=== PATIENT | female | born 2000 | race Two or more races ===

== ENCOUNTER → 2024-08-10 | Outpatient (BNVA) | payer MEDICAID, SELFPAY | END | disposition home or self-care (01) | PROVIDERS: PCP Nurse Practitioner Family; Referring Provider Nurse Practitioner Family; Visit Provider Nurse Practitioner Family | DX: L70.0 Acne vulgaris (principal); Z30.011 Encounter for initial prescription of contraceptive pills; F32.1 Major depressive disorder, single episode, moderate | CPT/HCPCS: 81025; 99214 ==

== ENCOUNTER → 2024-09-24 | Outpatient (BNVA) | payer MEDICAID, SELFPAY | END | disposition home or self-care (01) | PROVIDERS: PCP Nurse Practitioner Primary Care; Referring Provider Nurse Practitioner Primary Care; Visit Provider Nurse Practitioner Primary Care | DX: Z00.01 Encounter for general adult medical examination with abnormal findings (principal); Z01.83 Encounter for blood typing; Z11.3 Encounter for screening for infections with a predominantly sexual mode of transmission; Z32.02 Encounter for pregnancy test, result negative; E66.812 Obesity, class 2; Z68.36 Body mass index [BMI] 36.0-36.9, adult; Z13.1 Encounter for screening for diabetes mellitus; F41.9 Anxiety disorder, unspecified; Z71.85 Encounter for immunization safety counseling | CPT/HCPCS: 81025; 99395; G0439 ==

== ENCOUNTER → 2024-10-04 | Outpatient (BNVA) | payer MEDICAID, SELFPAY | END | disposition home or self-care (01) | PROVIDERS: PCP Nurse Practitioner Family; Referring Provider Nurse Practitioner Family; Visit Provider Nurse Practitioner Family | DX: F32.A Depression, unspecified (principal); F41.9 Anxiety disorder, unspecified | CPT/HCPCS: 99212; G0463 ==

== ENCOUNTER → 2024-10-11 | Outpatient (BNVA) | payer MEDICAID, SELFPAY | END | disposition home or self-care (01) | PROVIDERS: PCP Nurse Practitioner Primary Care; Referring Provider Nurse Practitioner Primary Care; Visit Provider Nurse Practitioner Primary Care | DX: Z32.01 Encounter for pregnancy test, result positive (principal); N91.2 Amenorrhea, unspecified | CPT/HCPCS: 99214 ==

== ENCOUNTER → 2024-10-12 | Outpatient (BNVA) | payer MEDICAID, SELFPAY | END | disposition home or self-care (01) | PROVIDERS: PCP Nurse Practitioner Primary Care; Referring Provider Nurse Practitioner Primary Care; Visit Provider Nurse Practitioner Primary Care | DX: Z32.01 Encounter for pregnancy test, result positive (principal) ==

== ENCOUNTER 2024-10-25 09:58 | Outpatient (AMB) | payer MEDICAID, SELFPAY ==
--- NOTE | 2024-10-25 10:34 | OBCLNT_ITS ---
Vital Signs 10/25/24 10:35 Height 1.63 m Height Method Stated Weight 95.028 kg Weight Measurement Method Standing Scale BMI 35.9 BP 148/93 H Blood Pressure Source Automatic Cuff Blood Pressure Location Right Upper Arm Position Sitting Respiration 16 Pulse 88 Pulse Source Monitor Temp 98.4 F Temp Source Oral Pulse Oximetry (%) 98 Oxygen Delivery Method Room Air Allergies/Home Meds Allergies & Medications Allergies No Known Allergies Allergy (Verified 10/25/24 10:36) Medication Reconciliation vitamin #56-iron 35 mg and 5 mg-folic acid 1 mg-dha capsule 1 cap PO QDAY #30 caps 10/11/24 [Rx Confirmed 10/25/24] Intake Visit Data Collection New Patient or Established: Established Patient (seen at [facility] within 3 years) Reason for Visit:: INITIAL CARE Seen by Clinical Staff ONLY (RN/MA): No Conditioner Tumbler Required: No Do You Feel Safe at Home: Yes Authorities Contacted: N/A PCP or OBGYN visit in last 3 months: Yes Hx Now: Yes Are you currently on any form of Control: No Last menstrual period: 08/31/24 Pain Present Currently: No Pain Scale Used: Chirinos-Avalos/Numerical Pain scale:: 0 Smoking Status Smoking Status: Never smoker Questionnaires Covid-19 Vaccine Questionnaire Has patient been vacinated for Covid-19 Have you been vacinated for Covid-19: Yes PHQ-9 PHQ-2 Over the last 2 weeks, how often have you been bothered by any of the following problems? 1. Little interest or pleasure in doing things: not at all 2. Feeling down, depressed, or hopeless: not at all Total score: 0 PHQ-9 3. Trouble falling or staying asleep, or sleeping too much: Not at all 4. Feeling tired or having little energy: Not at all 5. Poor appetite or overeating: Not at all 6. Feeling bad about yourself - or that you are a failure or have let yourself or your family down: Not at all 7. Trouble concentrating on things, such as reading the newspaper or watching television: Not at all 8. Moving or speaking so slowly that other people could have noticed? - Or the opposite - being so fidgety or restless that you have been moving around a lot more than usual: not at all 9. Thoughts that you would be better off or of hurting yourself in some way: Not at all Total score: 0 Source: Developed by Drs. Ramone Arguello, Rahel Terrazas, Jamil Ellis and colleagues, with an educational josé miguel from [employer]. Depression screen completed yes Social History Living Situation History Lives With: Family Housing: House Tobacco History Smoking Status: Never smoker Second Hand Smoke Exposure: No Alcohol History Alcohol Intake: Current Alcohol Intake Frequency: holidays/special occasions only Substance Use History Substance Use: HX: THC Domestic Abuse History Do You Feel Safe at Home: Yes History of Present Illness HPI Narrative Rain Chu, , presents for initial intake. LMP: August 31, 2024. LONNIE based on LMP: June 07, 2025. Currently estimated at 5-6 weeks gestation. OB History: - Prior pregnancies: , 34-week vaginal delivery in 2023, 5 lb 5 oz female infant - Prior C-sections, miscarriages, ectopics, or terminations: No Medical History: - Chronic conditions (e.g., DM, HTN, thyroid disease): Anxiety, depression - Surgical history: None mentioned - Medications: None mentioned - Allergies: None mentioned - Psychosocial: Tobacco No, Alcohol No, Illicit drugs No - IPV screening: No, Depression screening: No Family History: - Genetic or congenital disorders: None mentioned - Chronic diseases in family: None mentioned OB Ultrasound OB Ultrasound Ultrasound technique: transabdominal Gestational sac assessment: Presence, location, size, shape: - Transvaginal ultrasound: - Gestational sac present - No pole or heartbeat visualized - Gestational sac size corresponds to approximately 5-6 weeks gestation 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 History of vaginal delivery at 34w in 2023. No chronic medical or surgical history. No tobacco, alcohol, or drug use. Uterus visualized on US with intrauterine gestational sac; no pole or cardiac activity seen, consistent with early IUP. Plan: Repeat TVUS in 10 days for viability/lilliam ing hCG drawn today Start vitamins Rx for nausea sent Routine labs pending Declined genetic screening for now Routine follow-up Menstrual History Menstrual reliability: definite Flow: normal Menstrual regularity: regular Monthly: Yes Age at menarche: 11 On control pills at conception: No Date of positive home test: 10/06/24 Associated symptoms (LMP): Reports fatigue, breast tenderness and bloating OB History : 4 Para: 1 Hx # Pregnancies: 1 Hx Total # of Abortions (Spontaneous & Elective): 2 # of Living Children: 1 Delivery History 1st : Child's name: SUNSHINE date: 09/17/23 sex: female Gestational age at delivery (weeks): 32 Delivery type: vaginal Delivery complications: NONE History of depression before or after : Yes Infection History & Risk Evaluation History of STDs: none Genetic Screening & History Genetic Screening/Teratology Counseling - Includes patient, baby's father, or anyone in either family with: 1. Patient's age 35 years or older as of estimated date of delivery: No 2. Thalassemia (Malawian, Croatian, Mediterranean, or Background); MCV less than 80: No 3. Neural Tube Defect (Meningomyelocele, Spina Bifida, or Anencephaly): No 4. Congenital Heart Defect: No 5. Down Syndrome: No 6. Kuldeep-Sachs (Ashkenazi Scientologist, Cajun, Cuban Moca): No 7. Salty Disease (Ashkenazi Scientologist): No 8. Familial Dysautonomia (Ashkenazi Scientologist): No 9. Sickle Cell Disease or Trait (): No 10. Hemophilia or other blood disorders: No 11. Muscular Dystrophy: No 12. Cystic Fibrosis: No 13. Clovis's Chorea: No 14. Mental Retardation/Autism: No 15. Other inherited genetic or chromosomal disorder: No 16. Maternal Metabolic Disorder (EG,TYPE 1 Diabetes, PKU): No 17. Patient or baby's father had a child with defects not listed above: No 18. Recurrent loss or a stillbirth: No 19. Medications (including supplements, vitamins, herbs or otc drugs)/illicit/recreational drugs/alcohol since last menstrual period: No 20. Any other: No Infection History 1. Live with someone with TB or exposed to TB: No 2. Rash or viral illness since last menstrual period: No 3. Hepatitis B,C: No Other (see comments) Source: [employer] Review of Systems Constitutional Constitutional: Reports fatigue Gastrointestinal Gastrointestinal: Reports bloating Endocrine Endocrine: Reports fatigue Exam General Limitations: no limitations General Appearance: alert, in no apparent distress and comfortable Head Head exam: atraumatic and normocephalic Eye Eye exam: Present normal appearance, PERRL and EOMI Neck Neck exam: Present normal inspection and full ROM Chest Chest inspection: Present normal inspection and symmetric chest wall rise; Absent tenderness Resp Respiratory exam: Present normal lung sounds bilaterally; Absent respiratory distress Card Cardiovascular exam: Present regular rate and normal rhythm Abdominal Abdominal exam: Present soft and normal bowel sounds; Absent tenderness, guarding, rebound or rigidity Neuro Neurological exam: Present alert and oriented X3 Psych Psychiatric exam: Present normal affect Office Procedures OB Clinic LOC & Office Proc's Nursing/Assessment Patient Status: Established Patient OB Clinic Nursing Assessment: Medication Reconciliation, Update PMH in EMR and Vital Signs OB Clinic Coordination of Care: Complex Care and Chronic Disease 1-5, Con sent,records obtained, informed consent, Education Simp Pt/Fam, Lab and Imaging orders, Results/Orders obtained and Staff clarify orders Special Needs: Heart tones Established Patient Charge Established Patient Point Assignment: 135 Established Patient Point Charge: EP Level 4 (120-155) Bedside Ultrasounds US Transvaginal at bedside: Yes Assessment & Plan Diagnosis / Problem List (1) of unknown anatomic location: Status: Acute (2) Supervision of high risk , unspecified, first trimester: Status: Acute Plan Labs Ordered Today: - hCG Plan: - Routine care initiated - vitamins continued - Ultrasound performed today, repeat in 10 days to confirm dating - Genetic screening options reviewed and patient declines for now - Referral to MFM or nutrition if indicated - Prescription for nausea medication sent Educated the patient on the importance of care, including taking vitamins with folic acid, iron, and calcium. Emphasized avoiding alcohol, smoking, and certain medications. Discussed common symptoms like nausea and fatigue, advising small, frequent meals and adequate hydration. Explained the need for regular check-ups and recommended safe physical activities. Instructed on signs of complications, such as severe cramping or bleeding, and when to seek immediate medical attention. Highlighted the importance of a balanced diet and avoiding high-risk foods. Encouraged open communication about any concerns or questions. Encouraged keeping up with all appointments and tests.
[2024-10-25 10:35] VITALS: BP 148/93; PULSE 88; RESP 16; TEMP 36.9; O2SAT 98; BMI 35.9
== END 2024-10-25 11:00 | disposition home or self-care (01) ==
LOC: HODSOBC 09:58
PROVIDERS: PCP Nurse Practitioner Primary Care; Referring Provider Nurse Practitioner Primary Care; Supervising Provider Obstetrics & Gynecology; Visit Provider Obstetrics & Gynecology
DX: O09.211 Supervision of pregnancy with history of pre-term labor, first trimester (principal); Z3A.01 Less than 8 weeks gestation of pregnancy; O36.80X0 Pregnancy with inconclusive fetal viability, not applicable or unspecified
CPT/HCPCS: 76817; 99214; G0463

== ENCOUNTER 2024-11-04 09:12 | Outpatient (AMB) | payer MEDICAID, SELFPAY ==
[2024-11-04 09:24] VITALS: BP 126/94; PULSE 101; RESP 20; TEMP 36.6; O2SAT 98; BMI 35.6
--- NOTE | 2024-11-04 09:24 | OBCLNT_ITS ---
Vital Signs 11/04/24 09:24 Height 1.63 m Height Method Stated Weight 94.574 kg Weight Measurement Method Standing Scale BMI 35.6 BP 126/94 H Blood Pressure Source Automatic Cuff Blood Pressure Location Right Upper Arm Position Sitting Respiration 20 Pulse 101 H Pulse Source Monitor Temp 98 F Temp Source Oral Pulse Oximetry (%) 98 Oxygen Delivery Method Room Air Allergies/Home Meds Allergies & Medications Allergies No Known Allergies Allergy (Verified 11/04/24 09:25) Medication Reconciliation doxylamine 10 mg-pyridoxine (vit B6) 10 mg tablet,delayed release (Diclegis) 1 tab PO QDAY 30 days #30 tabs 11/04/24 [Rx] ondansetron 4 mg disintegrating tablet 4 mg PO Q6H PRN nausea and vomiting 30 days #120 tabs 11/04/24 [Rx] vitamin with calcium no.72-iron 27 mg-folic acid 1 mg tablet ( Vitamins Plus Low Iron) 1 tab PO QDAY 90 days #90 tabs 11/04/24 [Rx] Intake Visit Data Collection New Patient or Established: Established Patient (seen at [facility] within 3 years) Reason for Visit:: CARE Seen by Clinical Staff ONLY (RN/MA): No Veterinary Radiologist Required: No Do You Feel Safe at Home: Yes Authorities Contacted: N/A PCP or OBGYN visit in last 3 months: Yes Hx Now: Yes Are you currently on any form of Control: No Pain Present Currently: No Pain Scale Used: Chirinos-Avalos/Numerical Pain scale:: 0 Smoking Status Smoking Status: Never smoker Questionnaires Covid-19 Vaccine Questionnaire Has patient been vacinated for Covid-19 Have you been vacinated for Covid-19: Yes PHQ-9 PHQ-2 Over the last 2 weeks, how often have you been bothered by any of the following problems? 1. Little interest or pleasure in doing things: not at all 2. Feeling down, depressed, or hopeless: not at all Total score: 0 PHQ-9 3. Trouble falling or staying asleep, or sleeping too much: Not at all 4. Feeling tired or having little energy: Not at all 5. Poor appetite or overeating: Not at all 6. Feeling bad about yourself - or that you are a failure or have let yourself or your family down: Not at all 7. Trouble concentrating on things, such as reading the newspaper or watching television: Not at all 8. Moving or speaking so slowly that other people could have noticed? - Or the opposite - being so fidgety or restless that you have been moving around a lot more than usual: not at all 9. Thoughts that you would be better off or of hurting yourself in some way: Not at all Total score: 0 Source: Developed by Drs. Ramone Arguello, Rahel Terrazas, Jamil Ellis and colleagues, with an educational josé miguel from [employer]. 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 Patient reports nausea. Denies CARTWRIGHT, VC, and epigastric pain. heart tones: 158 bpm. Laboratory, Imaging, and Diagnostic Test Results - Date: 10/25/2024 - HC,327 - Ultrasound (11/04/2024): - heartbeat visualized: 158 bpm (normal) - Gestational age: 7 weeks and 3 days Care OB Visit Log OB Flowsheet Initial Weight: Not Recorded Date -?-?-?-?-?-?-?-?-?-?-?-?- EGA Weight BP Alb Glu CTX Pres Fundal ht FHR Mov Dilation Station Effacement Hx Notes Visit Note 10/25/24 -?-?-?-?-?-?-?-?-?-?-?-?- 7w 6d 95.028 kg 148/93 at ~5?6w by LMP 08/31/24, presents for initial intake. History of vaginal delivery at 34w in 2023. No chronic medical or surgical history. No tobacco, alcohol, or drug use. Uterus visualized on US with intrauterine gestational sac; no pole or cardiac activity seen, consistent with early IUP. Plan: Repeat TVUS in 10 days for viability/lilliam ing hCG drawn today Start vitamins Rx for nausea sent Routine labs pending Declined genetic screening for now Routine follow-up 11/04/24 -?-?-?-?-?-?-?-?-?-?-?-?- 9w 2d 94.574 kg 126/94 at 7 weeks and 3 days gestation presents for routine care. Patient reports nausea. Denies headache, vision changes, right upper quadrant or epigastric pain. Transvaginal ultrasound on 11/04/2024 confirmed intrauterine with heartbeat of 158 bpm, consistent with gestational age. hCG level on 10/25/2024 was 16,327. No additional concerns reported. Plan: Problem list: at 7w3d, nausea. Discussed ultrasound findings confirming intrauterine with appropriate dating and normal FHR. Routine labs ordered today. Counseled on genetic carrier screening options and reviewed timing for NIPT and NT scan. Advised continuation of vitamins, lifestyle modifications for early , and avoidance of teratogens. Educated on normal first-trimester symptoms and provided guidance on warning signs. Scheduled follow-up visit in 4 weeks. LONNIE Calculator Estimated Delivery Date Method Current WG Current Estimate 06/07/25 LMP (Uncertain) 9w 2d Office Procedures OB Clinic LOC & Office Proc's Nursing/Assessment Patient Status: Established Patient OB Clinic Nursing Assessment: Medication Reconciliation, Update PMH in EMR and Vital Signs OB Clinic Coordination of Care: Complex Care and Chronic Disease 1-5, Consent,records obtained, informed consent, Education Simp Pt/Fam, Lab and Imaging orders, Results/Orders obtained and Staff clarify orders Special Needs: Heart tones Established Patient Charge Established Patient Point Assignment: 135 Established Patient Point Charge: EP Level 4 (120-155) Assessment & Plan Diagnosis / Problem List (1) Supervision of high risk , unspecified, first trimester: Status: Acute (2) Hyperemesis gravidarum: Status: Acute Plan Confirmation and Dating Discussed confirmation of intrauterine via ultrasound, heart rate (FHR) observed [158 bpm], and estimated due date (LONNIE) established based on ultrasound dating [7 weeks and 3 days] per ACOG guidelines. Care and Follow-Up Reviewed importance of regular visits, with next appointment scheduled in 4 weeks (or sooner if high risk). Provided anticipatory guidance on expected first-trimester symptoms (e.g., nausea, fatigue) and self-care strategies. Screening and Testing Counseled on routine labs ordered today per standard guidelines. Discussed optional genetic carrier screening and offered based on risk factors or patient preference. Explained noninvasive testing (NIPT) for aneuploidy screening available after 9 weeks, including benefits, limitations, and follow-up diagnostic testing if indicated. Informed patient of planned nuchal translucency (NT) ultrasound at 12?14 weeks and detailed anatomy ultrasound at 18?22 weeks with M referral. Lifestyle and Risk Reduction Advised on vitamins (400-800 mcg folic acid daily) to reduce neural tube defect risk. Counseled on smoking cessation, alcohol avoidance, and limiting caffeine (<200 mg/day). Discussed safe exercise (30 minutes most days) and weight gain goals per BMI (per IOM guidelines). Reviewed dietary recommendations, including avoidance of high-risk foods (e.g., unpasteurized dairy, raw fish, deli meats). Assessed social risks (e.g., substance use, domestic violence) and provided resources if applicable. Warning Signs and Emergency Guidance Educated patient on concerning symptoms requiring immediate evaluation (e.g., vaginal bleeding, severe abdominal pain, persistent vomiting). Provided contact information for urgent concerns and after-hours care. Psychosocial Support Assessed emotional well-being and discussed common first-trimester emotional changes. Offered resources for mental health support or community services if needed.
== END 2024-11-04 10:11 | disposition home or self-care (01) ==
LOC: HODSOBC 09:12
PROVIDERS: PCP Obstetrics & Gynecology; Referring Provider Obstetrics & Gynecology; Supervising Provider Obstetrics & Gynecology; Visit Provider Obstetrics & Gynecology
DX: O09.891 Supervision of other high risk pregnancies, first trimester (principal); Z3A.09 9 weeks gestation of pregnancy; O21.0 Mild hyperemesis gravidarum
CPT/HCPCS: 99214; G0463

== ENCOUNTER 2024-12-01 08:31 | Outpatient (AMB) | payer MEDICAID, SELFPAY ==
[2024-12-01 08:41] VITALS: BP 132/81; PULSE 68; RESP 17; TEMP 36.8; O2SAT 99; BMI 34.5
--- NOTE | 2024-12-01 08:41 | OBCLNT_ITS ---
Vital Signs 12/01/24 08:41 Height 1.63 m Height Method Stated Weight 91.852 kg Weight Measurement Method Standing Scale BMI 34.5 BP 132/81 H Blood Pressure Source Automatic Cuff Blood Pressure Location Right Upper Arm Position Sitting Respiration 17 Pulse 68 Pulse Source Monitor Temp 98.3 F Temp Source Temporal Artery Scan Pulse Oximetry (%) 99 Oxygen Delivery Method Room Air Allergies/Home Meds Allergies & Medications Allergies No Known Allergies Allergy (Verified 12/01/24 08:42) Medication Reconciliation doxylamine 10 mg-pyridoxine (vit B6) 10 mg tablet,delayed release (Diclegis) 1 tab PO QDAY 30 days #30 tabs 11/04/24 [Rx Confirmed 12/01/24] vitamin with calcium no.72-iron 27 mg-folic acid 1 mg tablet ( Vitamins Plus Low Iron) 1 tab PO QDAY 90 days #90 tabs 11/04/24 [Rx Confirmed 12/01/24] Intake Visit Data Collection New Patient or Established: Established Patient (seen at [facility] within 3 years) Reason for Visit:: OBC Seen by Clinical Staff ONLY (RN/MA): No Service Center Manager Required: No Do You Feel Safe at Home: Yes Authorities Contacted: N/A PCP or OBGYN visit in last 3 months: Yes Date of Last PCP or OBGYN visit: 11/04/24 Hx Now: Yes Are you currently on any form of Control: No Pain Present Currently: No Pain Scale Used: Chirinos-Avalos/Numerical Pain scale:: 0 Smoking Status Smoking Status: Never smoker Questionnaires Covid-19 Vaccine Questionnaire Has patient been vacinated for Covid-19 Have you been vacinated for Covid-19: No PHQ-9 PHQ-2 Over the last 2 weeks, how often have you been bothered by any of the following problems? 1. Little interest or pleasure in doing things: not at all 2. Feeling down, depressed, or hopeless: not at all Total score: 0 PHQ-9 3. Trouble falling or staying asleep, or sleeping too much: Not at all 4. Feeling tired or having little energy: Not at all 5. Poor appetite or overeating: Not at all 6. Feeling bad about yourself - or that you are a failure or have let yourself or your family down: Not at all 7. Trouble concentrating on things, such as reading the newspaper or watching television: Not at all 8. Moving or speaking so slowly that other people could have noticed? - Or the opposite - being so fidgety or restless that you have been moving around a lot more than usual: not at all 9. Thoughts that you would be better off or of hurting yourself in some way: Not at all Total score: 0 If you checked off any problems, how difficult have these problems made it for you to do your work, take care of things at home, or get along with other people?: not difficult at all Source: Developed by Drs. Ramone Arguello, Rahel Terrazas, Jamil Ellis and colleagues, with an educational josé miguel from [employer] 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 LMP: 08/26/2024. LONNIE based on LMP: 06/02/2025. Currently estimated at 13 weeks 1 day gestation. OB History: - Prior pregnancies: , no details on delivery mode or complications provided - Prior C-sections, miscarriages, ectopics, or terminations: No details provided Medical History: - Chronic conditions (e.g., DM, HTN, thyroid disease): Hyperemesis gravidarum - Surgical history: Not provided - Medications: Diclegis, Zofran (sublingual), Reglan - Allergies: Not provided - Psychosocial: Tobacco [Not provided], Alcohol [Not provided], Illicit drugs [Not provided] - IPV screening: Not provided, Depression screening: Not provided Family History: - Genetic or congenital disorders: Not provided - Chronic diseases in family: Not provided Care OB Visit Log OB Flowsheet Initial Weight: Not Recorded Date -?-?-?-?-?-?-?-?-?-?-?-?- EGA Weight BP Alb Glu CTX Pres Fundal ht FHR Mov Dilation Station Effacement Hx Notes Visit Note 10/25/24 -?-?-?-?-?-?-?-?-?-?-?-?- 7w 6d 95.028 kg 148/93 at ~5?6w by LMP 08/31/24, presents for initial intake. History of vaginal delivery at 34w in 2023. No chronic medical or surgical history. No tobacco, alcohol, or drug use. Uterus visualized on US with intrauterine gestational sac; no pole or cardiac activity seen, consistent with early IUP. Plan: Repeat TVUS in 10 days for viability/lilliam ing hCG drawn today Start vitamins Rx for nausea sent Routine labs pending Declined genetic screening for now Routine follow-up 11/04/24 -?-?-?-?-?-?-?-?-?-?-?-?- 9w 2d 94.574 kg 126/94 at 7 weeks and 3 days gestation presents for routine care. Patient reports nausea. Denies headache, vision changes, right upper quadrant or epigastric pain. Transvaginal ultrasound on 11/04/2024 confirmed intrauterine with heartbeat of 158 bpm, consistent with gestational age. hCG level on 10/25/2024 was 16,327. No additional concerns reported. Plan: Problem list: at 7w3d, nausea. Discussed ultrasound findings confirming intrauterine with appropriate dating and normal FHR. Routine labs ordered today. Counseled on genetic carrier screening options and reviewed timing for NIPT and NT scan. Advised continuation of vitamins, lifestyle modifications for early , and avoidance of teratogens. Educated on normal first-trimester symptoms and provided guidance on warning signs. Scheduled follow-up visit in 4 weeks. 12/01/24 -?-?-?-?-?-?-?-?-?-?-?-?- 13w 1d 91.852 kg 132/81 at 13w1d, LONNIE 06/02/25. Initial intake. Hyperemesis gravidarum on Diclegis/Zofran/Reglan. FHR 157 Routine care, vitamins, genetic screening complete, US for dating, continue hyperemesis management, FU routine schedule.RetryClaude can make mistakes. Please double-check responses. at 13w1d, LONNIE 06/02/25. Initial intake. Hyperemesis gravidarum on Diclegis/Zofran/Reglan. FHR 157 LONNIE Calculator Estimated Delivery Date Method Current WG Current Estimate 06/07/25 LMP (Uncertain) 13w 5d Specific Issue/Plans Laboratory, Imaging, and Diagnostic Test Results - Hepatitis B: Negative - Hepatitis C: Negative - RPR: Non-reactive - Rubella: Immune - Blood group: A positive - Antibody screen: Negative - HIV: Negative - Gonorrhea: Negative - Chlamydia: Negative - CBC: - Hemoglobin: 14.0 g/dL - Hematocrit: 44.7% - Platelet count: 349 x10^3/?L - Urinalysis: - Appearance: Cloudy - Protein: 1+ - Ketones: 1+ - Epithelial cells: Present - Maternity 21: Negative for all trisomies and common genetic abnormalities - SMA testing: Negative - Cystic fibrosis testing: Negative - gender: Female Office Procedures OB Clinic LOC & Office Proc's Nursing/Assessment Patient Status: Established Patient OB Clinic Nursing Assessment: Medication Reconciliation, Update PMH in EMR and Vital Signs OB Clinic Coordination of Care: Complex Care and Chronic Disease 1-5, Consent,records obtained, informed consent, Education Simp Pt/Fam, Results/Order s obtained and Staff clarify orders Special Needs: Heart tones Established Patient Charge Established Patient Point Assignment: 120 Established Patient Point Charge: EP Level 4 (120-155) Assessment & Plan Diagnosis / Problem List (1) Hyperemesis gravidarum: Status: Acute (2) Supervision of high risk , unspecified, first trimester: Status: Acute Plan Labs Ordered Today: - Initial panel - Blood type & antibody screen - CBC, RPR, HIV, HBsAg, Rubella IgG - GC/CT, UA & culture, Varicella IgG, - NIPT, SMA and CF Screen Plan: - Routine care initiated - vitamins started - Ultrasound ordered to confirm dating - Genetic screening options reviewed and patient accepts - Referral to MFM or nutrition if indicated Educated the patient on the importance of care, including taking vitamins with folic acid, iron, and calcium. Emphasized avoiding alcohol, smoking, and certain medications. Discussed common symptoms like nausea and fatigue, advising small, frequent meals and adequate hydration. Explained the need for regular check-ups and recommended safe physical activities. Instructed on signs of complications, such as severe cramping or bleeding, and when to seek immediate medical attention. Highlighted the importance of a balanced diet and avoiding high-risk foods. Encouraged open communication about any concerns or questions. Encouraged keeping up with all appointments and tests.
== END 2024-12-01 09:27 | disposition home or self-care (01) ==
LOC: HODSOBC 08:31
PROVIDERS: PCP Obstetrics & Gynecology; Referring Provider Obstetrics & Gynecology; Supervising Provider Obstetrics & Gynecology; Visit Provider Obstetrics & Gynecology
DX: O09.891 Supervision of other high risk pregnancies, first trimester (principal); O21.0 Mild hyperemesis gravidarum; Z3A.13 13 weeks gestation of pregnancy
CPT/HCPCS: 99213; 99214; G0463

== ENCOUNTER 2024-12-21 11:23 | Outpatient (AMB) | payer MEDICAID, SELFPAY ==
[2024-12-21 11:40] VITALS: BP 125/83; PULSE 86; RESP 17; TEMP 36.8; O2SAT 98; BMI 34.5
--- NOTE | 2024-12-21 11:40 | OBCLNT_ITS ---
Vital Signs 12/21/24 11:40 Height 1.63 m Height Method Measured Weight 91.852 kg Weight Measurement Method Standing Scale BMI 34.5 BP 125/83 Blood Pressure Source Automatic Cuff Blood Pressure Location Right Upper Arm Position Sitting Respiration 17 Pulse 86 Pulse Source Monitor Temp 98.2 F Temp Source Temporal Artery Scan Pulse Oximetry (%) 98 Oxygen Delivery Method Room Air Allergies/Home Meds Allergies & Medications Allergies No Known Allergies Allergy (Verified 12/21/24 11:41) Medication Reconciliation doxylamine 10 mg-pyridoxine (vit B6) 10 mg tablet,delayed release (Diclegis) 1 tab PO QDAY 30 days #30 tabs 11/04/24 [Rx Confirmed 12/21/24] vitamin with calcium no.72-iron 27 mg-folic acid 1 mg tablet ( Vitamins Plus Low Iron) 1 tab PO QDAY 90 days #90 tabs 11/04/24 [Rx Confirmed 12/21/24] clotrimazole 2 % vaginal cream (Gyne-Lotrimin) 1 appful vaginal QHS 3 days #21 grams 12/21/24 [Rx] metronidazole 500 mg tablet 500 mg PO BID 7 days #14 tabs 12/21/24 [Rx] Intake Visit Data Collection New Patient or Established: Established Patient (seen at [facility] within 3 years) Reason for Visit:: OB\POSSIBLE YEAST Consent obtained for Telemed Visit: No Seen by Clinical Staff ONLY (RN/MA): No 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 1. Little interest or pleasure in doing things: not at all PHQ-9 8. Moving or speaking so slowly that other people could have noticed? - Or the opposite - being so fidgety or restless that you have been moving around a lot more than usual: not at all Source: Developed by Drs. Ramone Arguello, Rahel Terrazas, Jamil Ellis and colleagues, with an educational josé miguel from [employer]. 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 History of vaginal delivery at 34w in 2023. No chronic medical or surgical history. No tobacco, alcohol, or drug use. Uterus visualized on US with intrauterine gestational sac; no pole or cardiac activity seen, consistent with early IUP. Plan: Repeat TVUS in 10 days for viability/lilliam ing hCG drawn today Start vitamins Rx for nausea sent Routine labs pending Declined genetic screening for now Routine follow-up 11/04/24 -?-?-?-?-?-?-?-?-?-?-?-?- 9w 2d 94.574 kg 126/94 at 7 weeks and 3 days gestation presents for routine care. Patient reports nausea. Denies headache, vision ch anges, right upper quadrant or epigastric pain. Transvaginal ultrasound on 11/04/2024 confirmed intrauterine with heartbeat of 158 bpm, consistent with gestational age. hCG level on 10/25/2024 was 16,327. No additional concerns reported. Plan: Problem list: at 7w3d, nausea. Discussed ultrasound findings confirming intrauterine with appropriate dating and normal FHR. Routine labs ordered today. Counseled on genetic carrier screening options and reviewed timing for NIPT and NT scan. Advised continuation of vitamins, lifestyle modifications for early , and avoidance of teratogens. Educated on normal first-trimester symptoms and provided guidance on warning signs. Scheduled follow-up visit in 4 weeks. 12/01/24 -?--?-?-?-?-?-?-?-?-?-?-?- 13w 1d 91.852 kg 132/81 at 13w1d, LONNIE 06/02/25. Initial intake. Hyperemesis gravidarum on Diclegis/Zofran/Reglan. FHR 157 Routine care, vitamins, genetic screening complete, US for dating, continue hyperemesis management, FU routine schedule.RetryClaude can make mistakes. Please double-check responses. at 13w1d, LONNIE 06/02/25. Initial intake. Hyperemesis gravidarum on Diclegis/Zofran/Reglan. FHR 157 12/21/24 -?-?-?-?-?-?-?-?-?-?-?-?- 16w 0d 91.852 kg 125/83 absent unknown 14 145 absent c/o vag itch and burning, hyperemesis improving, spotted light x1. field work, vagina red, + greyish discharge IUP 14w by sono 11/04/24. fetus measured 7-3. AFP nv. nuswab plus. gynelotrimin x7, flagyl 500 bid x7. comfort measure for vaginitis. referal for [facility] sono. rtc 3 week LONNIE Calculator Estimated Delivery Date Method Current WG Current Estimate 06/07/25 LMP (Uncertain) 16w 0d Specific Issue/Plans Laboratory, Imaging, and Diagnostic Test Results - Hepatitis B: Negative - Hepatitis C: Negative - RPR: Non-reactive - Rubella: Immune - Blood group: A positive - Antibody screen: Negative - HIV: Negative - Gonorrhea: Negative - Chlamydia: Negative - CBC: - Hemoglobin: 14.0 g/dL - Hematocrit: 44.7% - Platelet count: 349 x10^3/?L - Urinalysis: - Appearance: Cloudy - Protein: 1+ - Ketones: 1+ - Epithelial cells: Present - Maternity 21: Negative for all trisomies and common genetic abnormalities - SMA testing: Negative - Cystic fibrosis testing: Negative - gender: Female Notes Visit Date: 12/21/24 Last Updated by: Gloria Guo CNM OB panel: A+,abs-,rpr;;nr, rub imm, HBSAG-,HIV-, HC-, gc/ct-, NIPT-, SMA/CF- Office Procedures OB Clinic LOC & Office Proc's Nursing/Assessment Patient Status: Established Patient OB Clinic Nursing Assessment: Medication Reconciliation, Update PMH in EMR and Vital Signs OB Clinic Coordination of Care: Complex Care and Chronic Disease 1-5, Consent,records obtained, informed consent, Education Simp Pt/Fam and 4+ Authorizations needed Special Needs: Heart tones Miscellaneous Interventions: Blood/Urine Collection and Pelvic Culture Established Patient Charge Established Patient Point Assignment: 170 Established Patient Point Charge: EP Level 5 (160-above) Assessment & Plan Diagnosis / Problem List (1) Encounter for supervision of high risk in second trimester, antepartum: Status: Acute (2) Vaginitis affecting in second trimester, antepartum: Status: Acute Plan Comfort measures for vaginitis. Prescription for Flagyl 500 p.o. 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 aFP next visit. Schedule M anatomy scan and dating. Keep appointment for 3 weeks. Continue comfort measures and management for hyperemesis as it currently is Additional Plan Follow Up: 3 Weeks (obc)
== END 2024-12-21 12:34 | disposition home or self-care (01) ==
LOC: HODSOBC 11:23
PROVIDERS: PCP Advanced Practice Midwife; Referring Provider Advanced Practice Midwife; Supervising Provider Advanced Practice Midwife; Visit Provider Advanced Practice Midwife
DX: O09.892 Supervision of other high risk pregnancies, second trimester (principal); O23.592 Infection of other part of genital tract in pregnancy, second trimester; N76.0 Acute vaginitis; Z3A.16 16 weeks gestation of pregnancy
CPT/HCPCS: 99215; G0463

== ENCOUNTER 2025-01-12 08:51 | Outpatient (AMB) | payer MEDICAID, SELFPAY ==
[2025-01-12 09:11] VITALS: BP 113/73; PULSE 66; RESP 17; TEMP 36.8; O2SAT 98; BMI 35.1
--- NOTE | 2025-01-12 09:11 | OBCLNT_ITS ---
Vital Signs 01/12/25 09:11 Height 1.63 m Height Method Measured Weight 93.213 kg Weight Measurement Method Standing Scale BMI 35.1 BP 113/73 Blood Pressure Source Automatic Cuff Blood Pressure Location Right Upper Arm Position Sitting Respiration 17 Pulse 66 Pulse Source Monitor Temp 98.2 F Temp Source Temporal Artery Scan Pulse Oximetry (%) 98 Oxygen Delivery Method Room Air Allergies/Home Meds Allergies & Medications Allergies No Known Allergies Allergy (Verified 03/23/25 11:50) Medication Reconciliation doxylamine 10 mg-pyridoxine (vit B6) 10 mg tablet,delayed release (Diclegis) 1 tab PO QDAY 30 days #30 tabs 11/04/24 [Rx Confirmed 03/23/25] vitamins with calcium no.72-iron 27 mg-folic acid 1 mg tablet ( Vitamins Plus Low Iron) 1 tab PO QDAY 90 days #90 tabs 11/04/24 [Rx Confirmed 03/23/25] amoxicillin 875 mg-potassium clavulanate 125 mg tablet 1 tab PO BID 7 days #14 tabs 03/23/25 [Rx] Intake Visit Data Collection New Patient or Established: Established Patient (seen at [facility] within 3 years) Reason for Visit:: OBC Consent obtained for Telemed Visit: No Seen by Clinical Staff ONLY (RN/MA): No 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 1. Little interest or pleasure in doing things: not at all PHQ-9 8. Moving or speaking so slowly that other people could have noticed? - Or the opposite - being so fidgety or restless that you have been moving around a lot more than usual: not at all Source: Developed by Drs. Ramone Arguello, Rahel B.W. Jamil Terrazas and colleagues, with an educational josé miguel from [employer]. 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 History of vaginal delivery at 34w in 2023. No chronic medical or surgical history. No tobacco, alcohol, or drug use. Uterus visualized on US with intrauterine gestational sac; no pole or cardiac activity seen, consistent with early IUP. Plan: Repeat TVUS in 10 days for viability/lilliam ing hCG drawn today Start vitamins Rx for nausea sent Routine labs pending Declined genetic screening for now Routine follow-up 11/04/24 -?-?-?-?-?-?-?-?-?-?-?-?- 9w 2d 94.574 kg 126/94 at 7 weeks and 3 days gestation presents for routine care. Patient reports nausea. Denies headache, vision changes, right upper quadrant or epigastric pain. Transvaginal ultrasound on 11/04/2024 confirmed intrauterine with heartbeat of 158 bpm, consistent with gestational age. hCG level on 10/25/2024 was 16,327. No additional concerns reported. Plan: Problem list: at 7w3d, nausea. Discussed ultrasound findings confirming intrauterine with appropriate dating and normal FHR. Routine labs ordered today. Counseled on genetic carrier screening options and reviewed timing for NIPT and NT scan. Advised continuation of vitamins, lifestyle modifications for early , and avoidance of teratogens. Educated on normal first-trimester symptoms and provided guidance on warning signs. Scheduled follow-up visit in 4 weeks. 12/01/24 -?-?-?-?-?-?-?-?-?-?-?-?- 13w 1d 91.852 kg 132/81 at 13w1d, LONNIE 06/02/25. Initial intake. Hyperemesis gravidarum on Diclegis/Zofran/Reglan. FHR 157 Routine care, vitamins, genetic screening complete, US for dating, continue hyperemesis management, FU routine schedule.RetryClaude can make mistakes. Please double-check responses. at 13w1d, LONNIE 06/02/25. Initial intake. Hyperemesis gravidarum on Diclegis/Zofran/Reglan. FHR 157 12/21/24 -?-?-?-?-?-?-?-?-?-?-?-?- 16w 0d 91.852 kg 125/83 absent unknown 14 145 absent c/o vag itch and burning, hyperemesis improving, spotted light x1. field work, vagina red, + greyish discharge IUP 14w by marilyn 11/04/24. fetus measured 7-3. AFP nv. nuswab plus. gynelotrimin x7, flagyl 500 bid x7. comfort measure for vaginitis. referal for sabino sanders. rtc 3 week 01/12/25 -?-?-?-?-?-?-?-?-?-?-?-?- 19w 1d 93.213 kg 113/73 absent unknown 20 155 active - Chief complaint: Back pain - Location: Lower back - Timing: All day - Severity: Described as really bad - Last appointment: Treated for grace vaginitis - Denies any other concerns or symptoms - Apply hot pads for back pain - Prescribed muscle relaxants for severe back pain days (not for daily use) - Can take Tylenol, use hot packs, and h ot showers for pain relief - Avoid using ice for back pain - Complete glucose test (1-hour test) on an empty stomach within the next couple of weeks - Follow up appointment in 4 weeks - Muscle relaxant prescription to be sen t to [facility] pharmacy LONNIE Calculator Estimated Delivery Date Method Current WG Current Estimate 06/07/25 LMP (Uncertain) 29w 4d Specific Issue/Plans Laboratory, Imaging, and Diagnostic Test Results - Hepatitis B: Negative - Hepatitis C: Negative - RPR: Non-reactive - Rubella: Immune - Blood group: A positive - Antibody screen: Negative - HIV: Negative - Gonorrhea: Negative - Chlamydia: Negative - CBC: - Hemoglobin: 14.0 g/dL - Hematocrit: 44.7% - Platelet count: 349 x10^3/?L - Urinalysis: - Appearance: Cloudy - Protein: 1+ - Ketones: 1+ - Epithelial cells: Present - Maternity 21: Negative for all trisomies and common genetic abnormalities - SMA testing: Negative - Cystic fibrosis testing: Negative - gender: Female Notes Visit Date: 12/21/24 Last Updated by: Gloria Guo CNM OB panel: A+,abs-,rpr;;nr, rub imm, HBSAG-,HIV-, HC-, gc/ct-, NIPT-, SMA/CF- Assessment & Plan Diagnosis / Problem List (1) Back pain affecting in second trimester: Status: Acute (2) Encounter for supervision of high risk in second trimester, antepartum: Status: Acute Plan Problem List - , 19 weeks and 1 day - Candidiasis of vulva and vagina - Low back pain Assessment 24-year-old at 19 weeks and 1 day gestation presenting for routine visit. Patient reports significant back pain, described as occurring all day and affecting the lower back. heart rate noted to be 155 bpm, which is within normal range. Patient was previously treated for grace vaginitis at last appointment. [place] [facility] [place] Plan - Apply hot pads for back pain - Prescribed muscle relaxants for severe back pain days (not for daily use) - Can take Tylenol, use hot packs, and hot showers for pain relief - Avoid using ice for back pain - Complete glucose test (1-hour test) on an empty stomach within the next couple of weeks - Follow up appointment in 4 weeks - Muscle relaxant prescription to be sent to [facility] pharmacy 1. Progress Reviewed gestational age, growth, and heart rate. Planned frequent visits (every 2 weeks until 36 weeks, then weekly). 2. Instructed patient to monitor movements and report decreases immediately. 3. Testing Counseled on routine third-trimester labs per guidelines. Discussed potential need for ultrasound or monitoring based on risk factors. 4. Preeclampsia Precaution Educated on preeclampsia signs: severe headache, vision changes, right upper quadrant pain, sudden swelling. Advised urgent reporting of symptoms and discussed blood pressure monitoring if high risk. 5. Labor Precautions Reviewed labor signs: regular contractions, pelvic pressure, back pain, bleeding, or fluid leakage. Instructed to seek immediate care for these symptoms. 6. Lifestyle and Delivery Preparation Reinforced vitamins, nutrition, and safe activity. Discussed plan, pain management, and . Advised on labor preparation (e.g., hospital bag) and expectations. 7. Psychosocial Support Assessed emotional well-being and offered resources for mental health or parenting support.
== END 2025-01-12 09:47 | disposition home or self-care (01) ==
LOC: HODSOBC 08:51
PROVIDERS: PCP Obstetrics & Gynecology; Referring Provider Obstetrics & Gynecology; Supervising Provider Obstetrics & Gynecology; Visit Provider Obstetrics & Gynecology
DX: O09.892 Supervision of other high risk pregnancies, second trimester (principal); O99.891 Other specified diseases and conditions complicating pregnancy; M54.50 Low back pain, unspecified; Z3A.19 19 weeks gestation of pregnancy
CPT/HCPCS: 99214; G0463

== ENCOUNTER 2025-01-17 10:53 | Emergency (ER) | payer MEDICAID, SELFPAY ==
[2025-01-17 11:03] VITALS: BP 124/83; PULSE 93; RESP 16; TEMP 36.8; O2SAT 97; BMI 35.2
--- NOTE | 2025-01-17 11:09 | XR_ITS ---
Examination: Complete OB ultrasound greater than 14 weeks Date and time of exam: January 17, 2025 1215 hours INDICATIONS: Lower back pain and pelvic pain beginning 2 weeks ago Findings: Viable intrauterine single fetus with single amniotic sac presentation breech Cardiac motion 152 BPM Placenta posterior grade 1 Umbilical cord insertion 3 vessel seen Amniotic fluid index 11.2 cm Cervix 3.1 cm Right ovary 2.7 cm arterial flow Left ovary 2.9 cm arterial flow. Composite estimated gestational age based on BPD, head circumference, abdominal circumference, femur length is 18 weeks 0 days Estimated weight 224 g. Survey of intracranial anatomy, spinal anatomy, abdominal anatomy, four-chamber heart performed with no abnormalities identified. Impression: Viable intrauterine gestation breech presentation.
--- NOTE | 2025-01-17 11:10 | EDNOTE_ITS ---
ED OB Contraction Preg RMI/HPI General Chief complaint: Urogenital-Female Stated complaint: 19 weeks OB, painful urination Time Seen by Provider: 01/17/25 10:55 Source: patient Arrival date/time: 01/17/25 10:53 24-year-old female with no known medical history presents to the emergency room with a chief complaint of lower back pain and dysuria x 2 days. Patient is currently 19 weeks . Patient denies any vaginal bleeding or vaginal discharge Mode of arrival: ambulatory Limitations: no limitations Related Data Previous Rx's ?Medication ?Instructions ?Recorded doxylamine 10 mg-pyridoxine (vit 1 tab PO QDAY 30 days #30 tabs 11/04/24 B6) 10 mg tablet,delayed release (Diclegis) vitamins with calcium 1 tab PO QDAY 90 days # 90 tabs 11/04/24 no.72-iron 27 mg-folic acid 1 mg tablet ( Vitamins Plus Low Iron) cyclobenzaprine 10 mg tablet 10 mg PO HS PRN muscle sp asm 10 01/12/25 days #10 tabs cephalexin 500 mg capsule 500 mg PO BID 7 days #14 cap s 01/17/25 Allergies Allergy/AdvReac Type Severity Reaction Status Date / Time No Known Allergies Allergy Verified 01/17/25 10:58 Review of Systems Review of Systems Systems Reviewed: All systems reviewed, normal except as documented Constitutional Constitutional: Reports system reviewed and no additional complaints, except as documented, Denies fatigue, Denies fever(s), Denies headache(s) and Denies weakness Eyes Eyes: Reports system reviewed and no additional complaints, except as documented, Denies blurry vision and Denies change in vision ENT Ears, Nose, Mouth, and Throat: Reports system reviewed and no additional complaints, except as documented, Denies otalgia, Denies headache(s), Denies nasal congestion, Denies throat swelling and Denies vertigo Cardiovascular Cardiovascular: Reports system reviewed and no additional complaints, except as documented, Denies chest pain, Denies dyspnea and Denies dyspnea on exertion Respiratory Respiratory: Reports system reviewed and no additional complaints, except as documented, Denies chest congestion, Denies cough, Denies dyspnea, Denies dyspnea on exertion and Denies wheezing Gastrointestinal Gastrointestinal: Reports system reviewed and no additional complaints, except as documented, Denies abdominal pain, Denies cramping, Denies nausea and Denies vomiting Genitourinary Genitourinary: Reports system reviewed and no additional complaints, except as documented Musculoskeletal Musculoskeletal: Reports system reviewed and no additional complaints, except as documented and Reports back pain Integumentary/Breasts Skin/Breast: Reports system reviewed and no additional complaints, except as documented and Denies wounds Neurologic Neurologic: Reports system reviewed and no additional complaints, except as documented, Denies confusion, Denies headache(s), Denies lack of coordination, Denies vertigo and Denies weakness Psychiatric Psychiatric: Reports system reviewed and no additional complaints, except as documented, Denies anxiety, Denies confusion, Denies depression, Denies paranoia, Denies suicidal ideation and Denies tactile hallucinations Endocrine Endocrine: Reports system reviewed and no additional complaints, except as documented and Denies fatigue Hematologic/Lymphatic Hematologic/Lymphatic: Reports system reviewed and no additional complaints, except as documented and Denies lymphadenopathy Allergic/Immunologic Allergic/Immunologic: Reports system reviewed and no additional complaints, except as documented, Denies throat swelling, Denies urticaria and Denies wheezing ED Exam General Limitations: Present no limitations General appearance: Present alert and in no apparent distress Head Head exam: Present atraumatic Eye Eye exam: Present normal appearance, PERRL and EOMI ENT ENT exam: Present normal exam, normal oropharynx and mucous membranes moist Neck Neck exam: Present normal inspection, full ROM and trachea midline Chest Chest inspection: Present normal inspection and symmetric chest wall rise Respiratory Respiratory exam: Present normal lung sounds bilaterally Cardiovascular Cardiovascular exam: Present regular rate, normal rhythm and normal heart sounds Abdominal Exam Abdominal exam: Present soft and normal bowel sounds; Absent distention, tenderness, guarding or rebound Extremities Exam Extremities exam: Present normal inspection and full ROM Back Exam Back exam: Present normal inspection, full ROM and tenderness Neurological Exam Neurological exam: Present alert, oriented X3 and CN II-XII intact Psychiatric Psychiatric exam: Present normal affect and normal mood Skin Skin exam: Present warm, dry, intact and normal color Course Quality Measures none Orders Category Date Time Status US OB >= 14 weeks Fetus Stat Exams 01/17/25 11:09 Completed ABO/RH Type Stat Lab 01/17/25 11:50 Completed Beta HCG,Quantitative Stat Lab 01/17/25 11:50 Completed CBC Stat Lab 01/17/25 11:50 Completed CMP [Comprehensive Metabolic Panel] Stat Lab 01/17/25 11:50 Completed UA [Urinalysis] Stat Lab 01/17/25 12:10 Completed Vital Signs Vital signs: Vital Signs Temperature 98.3 F 01/17/25 11:03 Pulse Rate 93 01/17/25 11:03 Respiratory Rate 16 01/17/25 11:03 Blood Pressure 124/83 01/17/25 11:03 Pulse Oximetry (%) 97 01/17/25 11:03 Oxygen Delivery Method Room Air 01/17/25 11:03 OB/Uterine Contractions MDM Narrative MDM Narrative:: 24-year-old female with no known medical history presents to the emergency room with a chief complaint of lower back pain and dysuria x 2 days. Patient is currently 19 weeks . Patient denies any vaginal bleeding or vaginal discharge Patient is hemodynamically stable and in no apparent distress Physical examination shows a soft nontender abdomen. Patient is having some lower back pain and dysuria. Urinary analysis shows a urinary tract infection. Antibiotics are sent to the patient's pharmacy Ultrasound shows a viable intrauterine gestation with breech presentation. The patient is currently 18 weeks her cardiac motion is 152 bpm and her hCG levels are at 10,345 Patient was educated to follow-up with her APPLICATIONS DEVELOPER and return to the emergency room for any evidence of worsening signs or symptoms Patient data External records reviewed:: [facility] previous records Clinical information provided by:: patient Social determinants that could affect healthcare access:: none Patient has the following chronic illnesses:: No chronic illness How is presenting disease/condition affected by chronic disease/condition?: no chronic disease Evaluation data The following diagnostics were reviewed and interpreted by me:: lab results and radiology exam(s) Lab and/or radiology exams considered but not ordered:: Labs and radiology exams considered and ordered Interpretation Summary: OB ultrasound-Findings: Viable intrauterine single fetus with single amniotic sac presentation breech Cardiac motion 152 BPM Placenta posterior grade 1 Umbilical cord insertion 3 vessel seen Amniotic fluid index 11.2 cm Cervix 3.1 cm Right ovary 2.7 cm arterial flow Left ovary 2.9 cm arterial flow. Composite estimated gestational age based on BPD, head circumference, abdominal circumference, femur length is 18 weeks 0 days Estimated weight 224 g. Survey of intracranial anatomy, spinal anatomy, abdominal anatomy, four-chamber heart performed with no abnormalities identified. Impression: Viable intrauterine gestation breech presentation. Medications / Prescriptions Medications or Prescriptions considered but not ordered:: No medication given Medication administrations:: No medication given Consultations Consultation(s) initiated? (list below): No Diagnosis OB Contractions Differential Diagnosis: other (Pelvic pain/urinary tract infection/spontaneous ) Most likely diagnosis given after review of the tests above:: Urinary tract infection Admission Indicated Admission indicated?: not indicated Explain why admission is indicated or not indicated:: N/A Admission Request Was there a request for admission?: No Disposition Plan Disposition Plan: Discharge Discharge Attestation Discharge Attestation: The patient and all family members were given an opportunity to ask questions and understood the discharge instructions. Discharge instructions specifically effects, indications for sooner follow up or return to the emergency department, and the expected course of current diagnosis. Patient condition: Stable Discharge Plan Plan Patient Disposition: HOME (Self Care) Discharge Disposition comment: Stable Prescriptions/Referrals Prescriptions/Med Rec: New cephalexin 500 mg capsule 500 mg PO BID 7 Days Qty: 14 0RF No Action Vitamin Plus Low Iron 27 mg iron- 1 mg tablet 1 tab PO QDAY 90 Days Qty: 90 6RF doxylamine-pyridoxine (vit B6) [Diclegis] 10-10 mg tablet,delayed release (DR/EC) 1 tab PO QDAY 30 Days Qty: 30 2RF cyclobenzaprine 10 mg tablet 10 mg PO HS PRN (Reason: muscle spasm) 10 Days Qty: 10 0RF Referrals: Osman Garcia MD [Primary Care Provider] - In 1 week Problem List Clinical Impression: Urinary tract infection Patient/Caregiver Discharge Instructions Education Materials: When to Use Antibiotics, ED CYSTITIS Female Adult Additional Instructions: Please follow-up with your APPLICATIONS DEVELOPER in the next 24 to 48 hours. An ultrasound was completed and shows you are currently 18 weeks. Your heart tones are at 152 bpm and your hCG levels are at 10,345. Your urinalysis showed a urinary tract infection. Antibiotics were sent to your pharmacy please pick them up and take them as indicated For any evidence of worsening signs or symptoms return to the emergency room immediately Print Language: Azeri Stand Alone Forms: Bridgett Award Info., Patient Portal Info Letter PA/INDUSTRIAL AUTOMATION SPECIALIST Supervising Physician PA/INDUSTRIAL AUTOMATION SPECIALIST Supervising Physician: Dr. Benjamin ALCANTARA Attestation MD Attestation The patient was seen by the midlevel practitioner. I, the co-signing physician, was present during the entire ER visit. While I did not physically examine the patient, I was available for consultation as needed. I agree with the plan and documentation.
[2025-01-17 12:04] LABS: Basophils # (Auto) 0.0 Thou/mm3 (0.0-0.2); Basophils % (Auto) 0 % (0-2.5); Eosinophils # (Auto) 0.1 Thou/mm3 (0.0-0.5); Eosinophils % (Auto) 1 % (0-10); Hematocrit 37.3 % (36.0-46.0); Hemoglobin 13.0 g/dL (12.0-16.0); Immature Granulocytes Auto 0.03 Thou/mm3 (0.00-0.00); Lymphocytes # (Auto) 1.7 Thou/mm3 (1.0-4.8); Lymphocytes % (Auto) 19 % (10-50); Mean Corpuscular HGB Conc 34.9 g/dl (31.0-37.0); Mean Corpuscular Hemoglobin 30.5 pg (25.0-35.0); Mean Corpuscular Volume 88 fL (80-100); Monocytes # (Auto) 0.5 Thou/mm3 (0.0-0.8); Monocytes % (Auto) 6 % (0-12); Neutrophils # (Auto) 6.6 Thou/mm3 (1.8-7.7); Neutrophils % (Auto) 74 % (37-80); Nucleated Red Blood Cell # 0.00 Thou/mm3 (0.00-0.00); Nucleated Red Blood Cell % 0 /100 WBC (0); Platelet Count 288 Thou/mm3 (140-440); RDW Standard Deviation 47.5 fL (36.4-46.3); Red Blood Count 4.26 Miln/mm3 (4.00-5.20); White Blood Count 8.9 Thou/mm3 (3.6-11.0)
[2025-01-17 12:27] LABS: Collection Type, Urine Clean Catch
[2025-01-17 12:34] LABS: Amorphous Crystals,Urine Present (Absent); Bacteria,Urine Rare; Bilirubin,Urine Negative (Negative); Blood,Urine Negative (Negative); Clarity,Urine Turbid (Clear/Hazy); Color,Urine Yellow (Lt Yel-Yel); Glucose, Urine Negative (Negative); Hyaline Casts,Urine < 1 /hpf (0-1); Ketones,Urine Negative (Negative); Leukocyte Esterase,Urine Positive (Negative); Nitrite,Urine Negative (Negative); PH,Urine 6.5 (5.0-7.0); Protein,Urine Trace (Neg - Trace); RBC,Urine 7 /hpf (0-3); Specific Gravity,Urine 1.028 (1.001-1.035); Squamous Epithelial Cell,Urine 33 /hpf (0-5); Urobilinogen,Urine Negative mg/dL (0.0-1.0); WBC,Urine 12 /hpf (0-5)
[2025-01-17 12:39] LABS: Alanine Aminotransferase 11 U/L (10-49); Albumin, Serum 4.2 gm/dL (3.5-5.0); Albumin/Globulin Ratio 1.8 (1.2-2.2); Alkaline Phosphatase 91 U/L (46-116); Anion Gap 10 (7-16); Aspartate Amino Transferase 11 U/L (0-34); BUN/Creatinine Ratio 8 Ratio (12-20); Bilirubin,Total 0.3 mg/dL (0.3-1.2); Blood Urea Nitrogen < 5 mg/dL (9-23); Calcium 9.1 mg/dL (8.3-10.6); Calcium (Corrected) 9.1 mg/dL (8.5-10.1); Carbon Dioxide 24.3 mMol/L (20.0-31.0); Chloride 105 mMol/L (98-107); Creatinine (Component) 0.6 mg/dL (0.6-1.3); Estimated Creatinine Clearance 157.0 mL/min (>60); Globulin 2.4 gm/dL (2.3-3.5); Glucose 101 mg/dL (74-106); Osmolality,Calculated 274 (275-295); Potassium 3.9 mMol/L (3.4-5.1); Sodium 139 mMol/L (136-145); Total Protein 6.6 gm/dL (5.7-8.2); eGFR > 60 See Note
[2025-01-17 13:05] LABS: Beta HCG,Quantitative 10345 mIU/mL (<5.0)
== END 2025-01-17 13:46 | disposition home or self-care (01) ==
PROVIDERS: Nurse Practitioner Family; Emergency Provider Family Medicine; PCP Obstetrics & Gynecology
DX: O23.42 Unspecified infection of urinary tract in pregnancy, second trimester (principal); O32.1XX0 Maternal care for breech presentation, not applicable or unspecified; Z3A.18 18 weeks gestation of pregnancy
CPT/HCPCS: 36415; 76805; 80053; 81001; 84702; 85025; 86900; 86901; 99283

== ENCOUNTER 2025-02-18 15:03 | Outpatient (AMB) | payer MEDICAID, SELFPAY ==
[2025-02-18 15:16] VITALS: BP 119/76; PULSE 87; RESP 16; TEMP 36.2; O2SAT 98; BMI 36.6
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
== END 2025-02-18 15:48 | disposition home or self-care (01) ==
LOC: HODSOBC 15:03
PROVIDERS: PCP Advanced Practice Midwife; Referring Provider Advanced Practice Midwife; Supervising Provider Obstetrics & Gynecology; Visit Provider Obstetrics & Gynecology
DX: O09.892 Supervision of other high risk pregnancies, second trimester (principal); O23.42 Unspecified infection of urinary tract in pregnancy, second trimester; O26.842 Uterine size-date discrepancy, second trimester; O98.812 Other maternal infectious and parasitic diseases complicating pregnancy, second trimester; B37.9 Candidiasis, unspecified; Z3A.24 24 weeks gestation of pregnancy
CPT/HCPCS: 99213; G0463

== ENCOUNTER 2025-03-23 11:39 | Outpatient (AMB) | payer MEDICAID, SELFPAY ==
[2025-03-23 11:49] VITALS: BP 132/78; PULSE 92; RESP 18; TEMP 36.2; O2SAT 98; BMI 36.9
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
== END 2025-03-23 12:00 | disposition home or self-care (01) ==
LOC: HODSOBC 11:39
PROVIDERS: Supervising Provider Obstetrics & Gynecology; Visit Provider Obstetrics & Gynecology
DX: O09.213 Supervision of pregnancy with history of pre-term labor, third trimester (principal); O09.893 Supervision of other high risk pregnancies, third trimester; O23.43 Unspecified infection of urinary tract in pregnancy, third trimester; Z3A.29 29 weeks gestation of pregnancy; Z87.440 Personal history of urinary (tract) infections
CPT/HCPCS: 99213; G0463

== ENCOUNTER 2025-04-08 09:09 | Outpatient (AMB) | payer MEDICAID, SELFPAY ==
[2025-04-08 09:37] VITALS: BP 117/77; PULSE 83; RESP 18; TEMP 36.7; O2SAT 97; BMI 37.7
--- NOTE | 2025-04-08 09:37 | OBCLNT_ITS ---
Vital Signs 04/08/25 09:37 Height 1.63 m Height Method Stated Weight 100.244 kg Weight Measurement Method Standing Scale BMI 37.7 BP 117/77 Blood Pressure Source Automatic Cuff Blood Pressure Location Right Upper Arm Position Sitting Respiration 18 Pulse 83 Pulse Source Monitor Temp 98.1 F Temp Source Temporal Artery Scan Pulse Oximetry (%) 97 Oxygen Delivery Method Room Air Allergies/Home Meds Allergies & Medications Allergies No Known Allergies Allergy (Verified 05/11/25 07:06) Medication Reconciliation vitamins with calcium no.72-iron 27 mg-folic acid 1 mg tablet ( Vitamins Plus Low Iron) 1 tab PO QDAY 90 days #90 tabs 11/04/24 [Rx Confirmed 05/11/25] Intake Visit Data Collection New Patient or Established: Established Patient (seen at [facility] within 3 years) Reason for Visit:: OBC Seen by Clinical Staff ONLY (RN/MA): No Range Technician Required: No Do You Feel Safe at Home: Yes Authorities Contacted: N/A PCP or OBGYN visit in last 3 months: Yes Date of Last PCP or OBGYN visit: 03/23/25 Hx Now: Yes Are you currently on any form of Control: No Pain Present Currently: Yes Pain Location: Abdomen (CRAMPING) and Back Pain Scale Used: Chirinos-Avalos/Numerical Pain scale:: 7 Smoking Status Smoking Status: Never smoker Immunizations Flu Vaccine in the Last 12 Months: No Flu Vaccine Exclusion Criteria: No Exclusion Criteria Questionnaires Covid-19 Vaccine Questionnaire Has patient been vacinated for Covid-19 Have you been vacinated for Covid-19: No PHQ-9 PHQ-2 Over the last 2 weeks, how often have you been bothered by any of the following problems? 1. Little interest or pleasure in doing things: not at all 2. Feeling down, depressed, or hopeless: not at all Total score: 0 PHQ-9 3. Trouble falling or staying asleep, or sleeping too much: Not at all 4. Feeling tired or having little energy: Not at all 5. Poor appetite or overeating: Not at all 6. Feeling bad about yourself - or that you are a failure or have let yourself or your family down: Not at all 7. Trouble concentrating on things, such as reading the newspaper or watching television: Not at all 8. Moving or speaking so slowly that other people could have noticed? - Or the opposite - being so fidgety or restless that you have been moving around a lot more than usual: not at all 9. Thoughts that you would be better off or of hurting yourself in some way: Not at all Total score: 0 If you checked off any problems, how difficult have these problems made it for you to do your work, take care of things at home, or get along with other people?: not difficult at all Source: Developed by Drs. Ramone Arguello, Rahel Terrazas, Jamil Ellis and colleagues, with an educational josé miguel from [employer]. 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 History of vaginal delivery at 34w in 2023. No chronic medical or surgical history. No tobacco, alcohol, or drug use. Uterus visualized on US with intrauterine gestational sac; no pole or cardiac activity seen, consistent with early IUP. Plan: Repeat TVUS in 10 days for viability/lilliam ing hCG drawn today Start vitamins Rx for nausea sent Routine labs pending Declined genetic screening for now Routine follow-up 11/04/24 -?-?-?-?-?-?-?-?-?-?-?-?- 9w 2d 94.574 kg 126/94 at 7 weeks and 3 days gestation presents for routine care. Patient reports nausea. Denies headache, vision changes, right upper quadrant or epigastric pain. Transvaginal ultrasound on 11/04/2024 confirmed intrauterine with heartbeat of 158 bpm, consistent with gestational age. hCG level on 10/25/2024 was 16,327. No additional concerns reported. Plan: Problem list: at 7w3d, nausea. Discussed ultrasound findings confirming intrauterine with appropriate dating and normal FHR. Routine labs ordered today. Counseled on genetic carrier screening options and reviewed timing for NIPT and NT scan. Advised continuation of vitamins, lifestyle modifications for early , and avoidance of teratogens. Educated on normal first-trimester symptoms and provided guidance on warning signs. Scheduled follow-up visit in 4 weeks. 12/01/24 -?-?-?-?-?-?-?-?-?-?-?-?- 13w 1d 91.852 kg 132/81 at 13w1d, LONNIE 06/02/25. Initial intake. Hyperemesis gravidarum on Diclegis/Zofran/Reglan. FHR 157 Routine care, vitamins, genetic screening complete, US for dating, continue hyperemesis management, FU routine schedule.RetryClaude can make mistakes. Please double-check responses. at 13w1d, LONNIE 06/02/25. Initial intake. Hyperemesis gravidarum on Diclegis/Zofran/Reglan. FHR 157 12/21/24 -?-?-?-?-?-?-?-?-?-?-?-?- 16w 0d 91.852 kg 125/83 absent unknown 14 145 absent c/o vag itch and burning, hyperemesis improving, spotted light x1. field work, vagina red, + greyish discharge IUP 14w by sono 11/04/24. fetus measured 7-3. AFP nv. nuswab plus. gynelotrimin x7, flagyl 500 bid x7. comfort measure for vaginitis. referal for sabino sanders. rtc 3 week 01/12/25 -?-?-?-?-?-?-?-?-?-?-?-?- 19w 1d 93.213 kg 113/73 absent unknown 20 155 active - Chief complaint: Back pain - Location: Lower back - Timing: All day - Severity: Described as really bad - Last appointment: Treated for grace vaginitis - Denies any other concerns or symptoms - Apply hot pads for back pain - Prescribed muscle relaxants for severe back pain days (not for daily use) - Can take Tylenol, use hot packs, and h ot showers for pain relief - Avoid using ice for back pain - Complete glucose test (1-hour test) on an empty stomach within the next couple of weeks - Follow up appointment in 4 weeks - Muscle relaxant prescription to be sen t to [facility] 02/18/25 -?-?-?-?-?-?-?-?-?-?-?-?- 24w 3d 97.296 kg 119/76 absent unknown 25 140 active - Patient reports urinary symptoms: - Frequency - Urgency - Burning sensation - Foul smell when wiping - History of back pain: - Previously treated with Tylenol and muscle relaxants - Patient experienced significant pelvic pressure 2 weeks ago: - Described as feeling like the baby w as going to come out - Pain was severe but has since resolv ed - Reports increased movement - Denies: - Cramping - Contractions - Leaking fluid - Complains of significant itchiness - Prescribe 14-day course of antibiotics for UTI - Provide prescription for yeast infecti on treatment (to be used if needed) - Send prescriptions to local pharmacy - Follow up in 4 weeks - Repeat urine culture at next visit 03/23/25 -?-?-?-?-?-?-?-?-?-?-?-?- 29w 1d 98.089 kg 132/78 absent cephalic 30 155 active - She has a history of recurrent urinary tract infections and was treated at her last appointment. - Today's urine dipstick is positive for blood and leukocytes. - She is currently being given Augmentin for acute UTI treatment. - Baby was breech earlier in the second trimester. - Start Augmentin for UTI treatment - Obtain urine culture at this appointme nt - Order CBC, urine culture, and RPR - MFM ultrasound scheduled for April 13 for interval growth evaluation, cervix monitoring, and presentation assessment - Return visit in 2 weeks - Call patient with urine culture result s 04/08/25 -?-?-?-?-?-?-?-?-?-?-?-?- 31w 3d 100.244 kg 117/77 absent cephalic 32 14 5 active - Rain Chu is a 4 para 1 patient at 31 weeks and 3 days gestation presenting for a visit with a history of recurrent UTIs. - She reports leg stretch pain occurring every 10 to 20 minutes. - Patient reports the baby is active. - She has a maternal ultrasound scheduled for April 13. - labor workup to be performed today including vaginal swab and ultrasound at labor and delivery (4th floor) - Maternal ultrasound scheduled fo r April 13 (Friday) - Follow-up appointment in 2 weeks 04/20/25 -?-?-?-?-?-?-?-?-?-?--?-?- 33w 1d 100.244 kg 126/84 absent cephalic 34 14 5 active - She was hospitalized over the weekend for spotting and suspected yeast infection. - A culture swab was performed during the hospital visit. - She was advised to use [id number] ter yeast medication, which she has used. - She reports feeling better now. - She reports the baby is active. - She denies any current concerns or symptoms. - Return in 2 weeks for next visit - Group B strep culture to be performed at next visit - Continue current management for pregna ncy at 33 weeks 1 day LONNIE Calculator Estimated Delivery Date Method Current WG Current Estimate 06/07/25 LMP (Uncertain) 39w 2d Specific Issue/Plans Laboratory, Imaging, and Diagnostic Test Results - Hepatitis B: Negative - Hepatitis C: Negative - RPR: Non-reactive - Rubella: Immune - Blood group: A positive - Antibody screen: Negative - HIV: Negative - Gonorrhea: Negative - Chlamydia: Negative - CBC: - Hemoglobin: 14.0 g/dL - Hematocrit: 44.7% - Platelet count: 349 x10^3/?L - Urinalysis: - Appearance: Cloudy - Protein: 1+ - Ketones: 1+ - Epithelial cells: Present - Maternity 21: Negative for all trisomies and common genetic abnormalities - SMA testing: Negative - Cystic fibrosis testing: Negative - gender: Female Notes Visit Date: 04/20/25 Last Updated by: Osman Garcia MD - [facility] ultrasound at 33 weeks 1 day gestation: KINA 17.74 (66th percentile), estimated weight 1743 grams (82nd percentile), abdominal circumference at 90th percentile, posterior placenta with no previa - heart rate: 146-150 bpm (normal) - Culture swab performed during recent hospital visit for spotting Visit Date: 04/08/25 Last Updated by: Osman Garcia MD - Recent laboratory results: - Hemoglobin: 12.8 g/dL - Syphilis test: Negative - Urine culture: Negative Visit Date: 02/18/25 Last Updated by: Osman Garcia MD - Date: 02/04/2025 - One-hour glucose tolerance test: 109 mg/dL - Hemoglobin A1c: 5.3% - [facility] Ultrasound (02/09/2025): - Anatomy survey: Within normal limits - Amniotic fluid: Within normal limits - No structural abnormalities noted (suboptimal views) - Transvaginal cervical length: 4.05 cm - Placenta: Posterior, no previa - presentation: Breech - Uterus and adnexa: Normal Visit Date: 12/21/24 Last Updated by: Gloria Guo CNM OB panel: A+,abs-,rpr;;nr, rub imm, HBSAG-,HIV-, HC-, gc/ct-, NIPT-, SMA/CF- Office Procedures OBC Clinic LOC & Office Proc's Nursing/Assessment Patient Status: Established Patient OB Clinic Nursing Assessment: Medication Reconciliation, Update PMH in EMR and Vital Signs OB Clinic Coordination of Care: Complex Care and Chronic Disease 1-5, Education Complex Pt/Fam, Consent,records obtained, informed consent, Results/Orders obtained and Staff clarify orders Special Needs: Heart tones Established Patient Charge Established Patient Point Assignment: 125 Established Patient Point Charge: EP Level 4 (120-155) Assessment & Plan Diagnosis / Problem List (1) Urinary tract infection: Status: Inactive (2) Maternal care for breech presentation, not applicable or unspecified: Status: Acute (3) labor without delivery, unspecified trimester: Status: Acute Plan Problem List - Recurrent urinary tract infections - Breech presentation - labor Assessment 36-week 6-day with breech presentation on last anatomy scan presenting with leg stretch pain occurring every 10-20 minutes, concerning for possible labor. Patient has history of recurrent UTIs. Current labs show hemoglobin 12.8, negative syphilis test, and negative urine culture. heart rate assessment performed with baby noted to be active. Plan - labor workup to be performed today including vaginal swab and ultrasound at labor and delivery (4th floor) - Maternal ultrasound scheduled for April 13 (Friday) - Follow-up appointment in 2 weeks 1. Progress Reviewed gestational age, growth, and heart rate. Planned frequent visits (every 2 weeks until 36 weeks, then weekly). 2. Instructed patient to monitor movements and report decreases immediately. 3. Testing Counseled on routine third-trimester labs per guidelines. Discussed potential need for ultrasound or monitoring based on risk factors. 4. Preeclampsia Precaution Educated on preeclampsia signs: severe headache, vision changes, right upper quadrant pain, sudden swelling. Advised urgent reporting of symptoms and discussed blood pressure monitoring if high risk. 5. Labor Precautions Reviewed labor signs: regular contractions, pelvic pressure, back pain, bleeding, or fluid leakage. Instructed to seek immediate care for these symptoms. 6. Lifestyle and Delivery Preparation Reinforced vitamins, nutrition, and safe activity. Discussed plan, pain management, and . Advised on labor preparation (e.g., hospital bag) and expectations. 7. Psychosocial Support Assessed emotional well-being and offered resources for mental health or parenting support.
== END 2025-04-08 09:55 | disposition home or self-care (01) ==
LOC: HODSOBC 09:09
PROVIDERS: Supervising Provider Obstetrics & Gynecology; Visit Provider Obstetrics & Gynecology
DX: O09.893 Supervision of other high risk pregnancies, third trimester (principal); O32.1XX0 Maternal care for breech presentation, not applicable or unspecified; O60.03 Preterm labor without delivery, third trimester; Z3A.31 31 weeks gestation of pregnancy; Z87.440 Personal history of urinary (tract) infections
CPT/HCPCS: 99214; G0463

== ENCOUNTER 2025-04-08 10:05 | Observation (INO) | payer MEDICAID, SELFPAY ==
[2025-04-08] VITALS (29 sets, daily range): BP systolic 123; BP diastolic 73; PULSE 85–103; RESP 18–98; TEMP 36.7; O2SAT 90–100; BMI 38.0
--- NOTE | 2025-04-08 10:30 | XR_ITS ---
Examination: OB Transvaginal ultrasound of the pelvis, limited Technique: Transvaginal sonographic images pelvis performed using orellana scale imaging Exam date and time: April 08, 2025, 1126 hours INDICATIONS: Labor evaluation, unknown cervical length. FINDINGS: Cervix 3.3 cm closed IMPRESSION: Cervix 3.3 cm closed
[2025-04-08] MEDS: BETAMET ACET/BETAMET NA PH (Celestone) 6 MG/ML VIAL 12 MG IM (12:13)
[2025-04-08 12:17] LABS: FFN Specimen Descripton Clr Colrless Aqueous; Fetal Fibronectin Positive (Negative)
== END 2025-04-08 12:42 | disposition home or self-care (01) ==
PROVIDERS: Admitting Provider Obstetrics & Gynecology; Visit Provider Obstetrics & Gynecology
DX: O26.893 Other specified pregnancy related conditions, third trimester (principal); Z3A.31 31 weeks gestation of pregnancy; R10.20 Pelvic and perineal pain unspecified side
CPT/HCPCS: 59025; 59899; 76817; 82731; 96372; J0702

== ENCOUNTER 2025-04-09 12:25 | Outpatient (CLI) | payer MEDICAID, SELFPAY ==
[2025-04-09 12:41] VITALS: BP 120/71; PULSE 109
[2025-04-09 12:42] VITALS: BP 120/71; PULSE 109; RESP 18; RESP 99; TEMP 36.7; BMI 36.7
[2025-04-09] MEDS: BETAMET ACET/BETAMET NA PH (Celestone) 6 MG/ML VIAL 12 MG IM (13:11)
== END 2025-04-09 13:15 | disposition home or self-care (01) ==
LOC: S4S1 12:29 → S4SX 12:30
PROVIDERS: Referring Provider Obstetrics & Gynecology; Visit Provider Obstetrics & Gynecology
DX: Z34.83 Encounter for supervision of other normal pregnancy, third trimester (principal); Z36.9 Encounter for antenatal screening, unspecified; Z3A.31 31 weeks gestation of pregnancy
CPT/HCPCS: 59025; 96372; J0702

== ENCOUNTER 2025-04-16 08:20 | Observation (INO) | payer MEDICAID, SELFPAY ==
[2025-04-16] VITALS (24 sets, daily range): BP systolic 112; BP diastolic 74; PULSE 92–118; RESP 18–99; TEMP 36.6; O2SAT 95–100; BMI 37.8
--- NOTE | 2025-04-16 08:47 | XR_ITS ---
Examination: Complete OB ultrasound greater than 14 weeks Date and time of exam: April 16, 2025, 0945 hours INDICATIONS: Vaginal bleeding and pelvic pain today Findings: Viable intrauterine single fetus with single amniotic sac presentation cephalic Cardiac motion 153 bpm Placenta posterior grade 2 Umbilical cord insertion 3 vessel seen Amniotic fluid index 10.5 cm Cervix 3.2 cm Right ovary 2.9 cm arterial flow Left ovary obscured by bowel gas. Composite estimated gestational age based on BPD, head circumference, abdominal circumference, femur length is 32 weeks 1 day Estimated weight 1980 g. Survey of intracranial anatomy, spinal anatomy, abdominal anatomy, four-chamber heart performed with no abnormalities identified. Impression: Viable intrauterine gestation cephalic presentation.
--- NOTE | 2025-04-16 08:47 | XR_ITS ---
Examination: Biophysical profile, ultrasound Date and time of exam: April 16, 2025, 10:00 a.m. INDICATIONS: Decreased movement today Technique: Multiple transabdominal sonographic images of the pelvis abdomen obtained. Attention is directed to the breathing movement, gross body movement, amniotic fluid volume and tone. Findings: Amniotic fluid index 10.5 cm Total biophysical profile is 8 of 8. breathing movement is 2. Gross body movement is 2. tone is 2. Qualitative amniotic fluid volume is 2 Impression: Biophysical profile is 8 of 8.
--- NOTE | 2025-04-16 08:47 | XR_ITS ---
Examination: OB Transvaginal ultrasound of the pelvis, limited Technique: Transvaginal sonographic images pelvis performed using orellana scale imaging Exam date and time: April 16, 2025, 10:00 a.m. INDICATIONS: Vaginal bleeding and pelvic pain today, unknown cervical length. FINDINGS: Cervix 3.9 cm closed IMPRESSION: Cervix 3.9 cm
--- NOTE | 2025-04-16 12:16 | ESPR_ITS ---
Documentation for date of: 04/16/25 OB Labor Progress Note Pelvic Exam Amniotic membrane status: Intact Contractions Monitor mode: External Contraction frequency: none Status status: Category l Assessment and Plan Comments: Triage Note Rain is a 24yo with SIUP at 32&4wk presenting to L&D for decreased movement and vaginal spotting episode today. She noticed spotting when she wiped. No significant bleeding since she left home and arrived to triage. No vaginal itching or abnormal discharge. Notably, she has hx of a prior delivery at 34&3 after she had PPROM. She had +FFN on 04/08 for which she received a course of betamethasone (cervical length was 3.3cm at that time). She notes no regular ctx, no loss of fluid. No abdominal pain. Normal movement. care with Dr. Garcia. ROS negative other than what was described above. Vitals wnl, afebrile General: well developed, well nourished, no acute distress, conversant Cardiac: normal heart rate Lungs: breathing without distress Abdomen: soft, gravid, non-tender, no rebound or guarding Extremities: no edema of BLE SSE: NEFG, copious thick white chunky discharge within the vaginal vault, cervix appears visually closed, no blood noted FHRT reassuring reactive with +accels, no decels, mod ángel [place]: no ctx pattern Radiology: ultrasound: Amniotic fluid index 10.5 cm Total biophysical profile is 8 of 8. breathing movement is 2. Gross body movement is 2. tone is 2. Qualitative amniotic fluid volume is 2 Impression: Biophysical profile is 8 of 8. Transvaginal ultrasound: FINDINGS: Cervix 3.9 cm closed Labs: A positive Assessment: Rain is a 24yo with SIUP at 32&4wk with vaginal spotting episode, no evidence of placental abruption or pre-term labor. Normal cervical length. No ctx. Reassuring status with BPP 8/8, normal KINA. Vitals wnl, benign exam with exception of thick white clumpy vaginal discharge consistent with vaginal candidiasis. 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 Roro Chin MD
[2025-04-17 08:51] LABS: BVAG Candida Positive (Negative); Bacterial Vaginosis Markers Negative (Negative); Candida glabrata Negative (Negative); Candida krusei PCR Negative (Negative); Trichomonas Negative (Negative)
== END 2025-04-16 11:23 | disposition home or self-care (01) ==
PROVIDERS: Admitting Provider Obstetrics & Gynecology; Visit Provider Obstetrics & Gynecology
DX: O98.813 Other maternal infectious and parasitic diseases complicating pregnancy, third trimester (principal); B37.31 Acute candidiasis of vulva and vagina; O36.8130 Decreased fetal movements, third trimester, not applicable or unspecified; O26.853 Spotting complicating pregnancy, third trimester; Z3A.32 32 weeks gestation of pregnancy
CPT/HCPCS: 59025; 59899; 76805; 76817; 76819; 81514

== ENCOUNTER 2025-04-20 10:03 | Outpatient (AMB) | payer MEDICAID, SELFPAY ==
[2025-04-20 10:08] VITALS: BP 126/84; PULSE 101; RESP 20; TEMP 36.6; O2SAT 96; BMI 37.9
--- NOTE | 2025-04-20 10:08 | OBCLNT_ITS ---
Vital Signs 04/20/25 10:08 Height 1.63 m Height Method Stated Weight 100.244 kg Weight Measurement Method Standing Scale BMI 37.9 BP 126/84 Blood Pressure Source Automatic Cuff Blood Pressure Location Left Upper Arm Position Sitting Respiration 20 Pulse 101 H Pulse Source Monitor Temp 97.8 F Temp Source Oral Pulse Oximetry (%) 96 Oxygen Delivery Method Room Air Allergies/Home Meds Allergies & Medications Allergies No Known Allergies Allergy (Verified 04/20/25 10:09) Medication Reconciliation doxylamine 10 mg-pyridoxine (vit B6) 10 mg tablet,delayed release (Diclegis) 1 tab PO QDAY 30 days #30 tabs 11/04/24 [Rx Confirmed 04/20/25] vitamins with calcium no.72-iron 27 mg-folic acid 1 mg tablet ( Vitamins Plus Low Iron) 1 tab PO QDAY 90 days #90 tabs 11/04/24 [Rx Confirmed 04/20/25] Intake Visit Data Collection New Patient or Established: Established Patient (seen at [facility] within 3 years) Reason for Visit:: CARE Seen by Clinical Staff ONLY (RN/MA): No Agents' Records Clerk Required: No Do You Feel Safe at Home: Yes Authorities Contacted: N/A PCP or OBGYN visit in last 3 months: Yes Hx Now: Yes Are you currently on any form of Control: No Pain Present Currently: No Pain Scale Used: Chirinos-Avalos/Numerical Pain scale:: 0 Smoking Status Smoking Status: Never smoker Immunizations Flu Vaccine in the Last 12 Months: Yes Flu Vaccine Exclusion Criteria: Already Received Questionnaires Covid-19 Vaccine Questionnaire Has patient been vacinated for Covid-19 Have you been vacinated for Covid-19: Yes PHQ-9 PHQ-2 Over the last 2 weeks, how often have you been bothered by any of the following problems? 1. Little interest or pleasure in doing things: not at all 2. Feeling down, depressed, or hopeless: not at all Total score: 0 PHQ-9 3. Trouble falling or staying asleep, or sleeping too much: Not at all 4. Feeling tired or having little energy: Not at all 5. Poor appetite or overeating: Not at all 6. Feeling bad about yourself - or that you are a failure or have let yourself or your family down: Not at all 7. Trouble concentrating on things, such as reading the newspaper or watching television: Not at all 8. Moving or speaking so slowly that other people could have noticed? - Or the opposite - being so fidgety or restless that you have been moving around a lot more than usual: not at all 9. Thoughts that you would be better off or of hurting yourself in some way: Not at all Total score: 0 Source: Developed by Drs. Ramone Arguello, Rahel Terrazas, Jamil Ellis and colleagues, with an educational josé miguel from [employer]. 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 History of vaginal delivery at 34w in 2023. No chronic medical or surgical history. No tobacco, alcohol, or drug use. Uterus visualized on US with intrauterine gestational sac; no pole or cardiac activity seen, consistent with early IUP. Plan: Repeat TVUS in 10 days for viability/lilliam ing hCG drawn today Start vitamins Rx for nausea sent Routine labs pending Declined genetic screening for now Routine follow-up 11/04/24 -?-?-?-?-?-?-?-?-?-?-?-?- 9w 2d 94.574 kg 126/94 at 7 weeks and 3 days gestation presents for routine care. Patient reports nausea. Denies headache, vision changes, right upper quadrant or epigastric pain. Transvaginal ultrasound on 11/04/2024 confirmed intrauterine with heartbeat of 158 bpm, consistent with gestational age. hCG level on 10/25/2024 was 16,327. No additional concerns reported. Plan: Problem list: at 7w3d, nausea. Discussed ultrasound findings confirming intrauterine with appropriate dating and normal FHR. Routine labs ordered today. Counseled on genetic carrier screening options and reviewed timing for NIPT and NT scan. Advised continuation of vitamins, lifestyle modifications for early , and avoidance of teratogens. Educated on normal first-trimester symptoms and provided guidance on warning signs. Scheduled follow-up visit in 4 weeks. 12/01/24 -?-?-?-?-?-?-?-?-?-?-?-?- 13w 1d 91.852 kg 132/81 at 13w1d, LONNIE 06/02/25. Initial intake. Hyperemesis gravidarum on Diclegis/Zofran/Reglan. FHR 157 Routine care, vitamins, genetic screening complete, US for dating, continue hyperemesis management, FU routine schedule.RetryClaude can make mistakes. Please double-check responses. at 13w1d, LONNIE 06/02/25. Initial intake. Hyperemesis gravidarum on Diclegis/Zofran/Reglan. FHR 157 12/21/24 -?-?-?-?-?-?-?-?-?-?-?-?- 16w 0d 91.852 kg 125/83 absent unknown 14 145 absent c/o vag itch and burning, hyperemesis improving, spotted light x1. field work, vagina red, + greyish discharge IUP 14w by sono 11/04/24. fetus measured 7-3. AFP nv. nuswab plus. gynelotrimin x7, flagyl 500 bid x7. comfort measure for vaginitis. referal for [facility] marilyn. rtc 3 week 01/12/25 -?-?-?-?-?-?-?-?-?-?-?-?- 19w 1d 93.213 kg 113/73 absent unknown 20 155 active - Chief complaint: B ack pain - Location: Lower back - Timing: All day - Severity: Described as really bad - Last appointment: Treated for grace vaginitis - Denies any other concerns or symptoms - Apply hot pads for back pain - Prescribed muscle relaxants for severe back pain days (not for daily use) - Can take Tylenol, use hot packs, and h ot showers for pain relief - Avoid using ice for back pain - Complete glucose test (1-hour test) on an empty stomach within the next couple of weeks - Follow up appointment in 4 weeks - Muscle relaxant prescription to be sen t to [facility] pharmacy 02/18/25 -?-?-?-?-?-?-?-?-?-?-?-?- 24w 3d 97.296 kg 119/76 absent unknown 25 140 active - Patient reports urinary symptoms: - Frequency - Urgency - Burning sensation - Foul smell when wiping - History of back pain: - Previously treated with Tylenol and muscle relaxants - Patient experienced significant pelvic pressure 2 weeks ago: - Described as feeling like the baby w as going to come out - Pain was severe but has since resolv ed - Reports increased movement - Denies: - Cramping - Contractions - Leaking fluid - Complains of significant itchiness - Prescribe 14-day course of antibiotics for UTI - Provide prescription for yeast infecti on treatment (to be used if needed) - Send prescriptions to local pharmacy - Follow up in 4 weeks - Repeat urine culture at next visit 04/20/25 -?-?-?-?-?-?-?-?-?-?-?-?- 33w 1d 100.244 kg 126/84 absent cephalic 34 14 5 active - She was hospitalized over the weekend for spotting and suspected yeast infection. - A culture swab was performed during the hospital visit. - She was advised to use spvx-cax-zfel ter yeast medication, which she has used. - She reports feeling better now. - She reports the baby is active. - She denies any current concerns or symptoms. - Return in 2 weeks for next visit - Group B strep culture to be performed at next visit - Continue current management for pregna ncy at 33 weeks 1 day LONNIE Calculator Estimated Delivery Date Method Current WG Current Estimate 06/07/25 LMP (Uncertain) 33w 1d Specific Issue/Plans Laboratory, Imaging, and Diagnostic Test Results - Hepatitis B: Negative - Hepatitis C: Negative - RPR: Non-reactive - Rubella: Immune - Blood group: A positive - Antibody screen: Negative - HIV: Negative - Gonorrhea: Negative - Chlamydia: Negative - CBC: - Hemoglobin: 14.0 g/dL - Hematocrit: 44.7% - Platelet count: 349 x10^3/?L - Urinalysis: - Appearance: Cloudy - Protein: 1+ - Ketones: 1+ - Epithelial cells: Present - Maternity 21: Negative for all trisomies and common genetic abnormalities - SMA testing: Negative - Cystic fibrosis testing: Negative - gender: Female Notes Visit Date: 04/20/25 Last Updated by: Osman Garcia MD - [facility] ultrasound at 33 weeks 1 day gestation: KINA 17.74 (66th percen tile), estimated weight 1743 grams (82nd percentile), abdominal circumference at 90th percentile, posterior placenta with no previa - heart rate: 146-150 bpm (normal) - Culture swab performed during recent hospital visit for spotting Visit Date: 02/18/25 Last Updated by: Osman Garcia MD - Date: 02/04/2025 - One-hour glucose tolerance test: 109 mg/dL - Hemoglobin A1c: 5.3% - [facility] Ultrasound (02/09/2025): - Anatomy survey: Within normal limits - Amniotic fluid: Within normal limits - No structural abnormalities noted (suboptimal views) - Transvaginal cervical length: 4.05 cm - Placenta: Posterior, no previa - presentation: Breech - Uterus and adnexa: Normal Visit Date: 12/21/24 Last Updated by: Gloria Guo CNM OB panel: A+,abs-,rpr;;nr, rub imm, HBSAG-,HIV-, HC-, gc/ct-, NIPT-, SM A/CF- Office Procedures [facility] Clinic LOC & Office Proc's Nursing/Assessment Patient Status: Established Patient OB Clinic Nursing Assessment: Medication Reconciliation, Update PMH in EMR and Vital Signs OB Clinic Coordination of Care: Complex Care and Chronic Disease 1-5, Consent,records obtained, informed consent, Education Simp Pt/Fam, 1 Ins Authorization, Lab and Imaging orders, Results/Orders obtained and Staff clarify orders Special Needs: Heart tones Established Patient Charge Established Patient Point Assignment: 150 Established Patient Point Charge: EP Level 4 (120-155) Assessment & Plan Diagnosis / Problem List (1) Recurrent UTI: Status: Acute (2) Supervision of high risk , unspecified, third trimester: Status: Acute (3) Personal history of pre-term labor: Status: Acute Plan Problem List - at 33 weeks and 1 day gestation - Vaginal candidiasis - History of premature rupture of membranes Assessment 33 weeks and 1 day gestation with history of prior delivery at 34 weeks due to premature rupture of membranes. Recent [facility] ultrasound on 04/11/2025 shows estimated weight of 1743 grams at 82nd percentile with abdominal circumference at 90th percentile, indicating growth on the larger side but not alarmingly big. KINA 17.74 at 66th percentile with posterior placenta and no previa. Patient had recent hospital visit over the weekend for spotting with culture swab performed and was treated for yeast infection with [id number] medication, now improved. heart rate 146-150 bpm, which is normal, and baby is active. Plan - Return in 2 weeks for next visit - Group B strep culture to be performed at next visit - Continue current management for at 33 weeks 1 day 1. Progress Reviewed gestational age at 33 weeks and 1 day, growth with estimated weight 1743 grams at 82nd percentile, and heart rate 146-150 bpm which is normal. Planned frequent visits (every 2 weeks until 36 weeks, then weekly). 2. Instructed patient to monitor movements and report decreases immediately. 3. Testing Counseled on routine third-trimester labs per guidelines including group B strep culture at next visit. Discussed potential need for ultrasound or monitoring based on risk factors. 4. Preeclampsia Precaution Educated on preeclampsia signs: severe headache, vision changes, right upper quadrant pain, sudden swelling. Advised urgent reporting of symptoms and discussed blood pressure monitoring if high risk. 5. Labor Precautions Reviewed labor signs: regular contractions, pelvic pressure, back pain, bleeding, or fluid leakage given history of delivery at 34 weeks. Instructed to seek immediate care for these symptoms. 6. Lifestyle and Delivery Preparation Reinforced vitamins, nutrition including staying well hydrated and eating nutritious diet without skipping meals, and safe activity. Discussed plan, pain management, and . Advised on labor preparation (e.g., hospital bag) and expectations. 7. Psychosocial Support Assessed emotional well-being and offered resources for mental health or parenting support.
== END 2025-04-20 10:21 | disposition home or self-care (01) ==
LOC: HODSOBC 10:03
PROVIDERS: Supervising Provider Obstetrics & Gynecology; Visit Provider Obstetrics & Gynecology
DX: O09.893 Supervision of other high risk pregnancies, third trimester (principal); O23.43 Unspecified infection of urinary tract in pregnancy, third trimester; O98.813 Other maternal infectious and parasitic diseases complicating pregnancy, third trimester; B37.31 Acute candidiasis of vulva and vagina; O09.213 Supervision of pregnancy with history of pre-term labor, third trimester; Z3A.33 33 weeks gestation of pregnancy; Z87.59 Personal history of other complications of pregnancy, childbirth and the puerperium
CPT/HCPCS: 99214; G0463

== ENCOUNTER 2025-05-10 14:31 | Outpatient (AMB) | payer MEDICAID, SELFPAY ==
[2025-05-10 14:57] VITALS: BP 124/84; PULSE 92; RESP 18; TEMP 36.6; O2SAT 97; BMI 38.5
--- NOTE | 2025-05-10 14:57 | OBCLNT_ITS ---
Vital Signs 05/10/25 14:57 Height 1.63 m Height Method Stated Weight 102.228 kg Weight Measurement Method Standing Scale BMI 38.5 BP 124/84 Blood Pressure Source Automatic Cuff Blood Pressure Location Left Upper Arm Position Sitting Respiration 18 Pulse 92 Pulse Source Monitor Temp 98 F Temp Source Oral Pulse Oximetry (%) 97 Oxygen Delivery Method Room Air Allergies/Home Meds Allergies & Medications Allergies No Known Allergies Allergy (Verified 05/11/25 07:06) Medication Reconciliation vitamins with calcium no.72-iron 27 mg-folic acid 1 mg tablet ( Vitamins Plus Low Iron) 1 tab PO QDAY 90 days #90 tabs 11/04/24 [Rx Confirmed 05/11/25] Immunizations Immunizations Flu Vaccine in the Last 12 Months: Yes Date of most recent flu vaccination: 05/10/25 Flu Vaccine Exclusion Criteria: Already Received Care OB Visit Log OB Flowsheet Initial Weight: Not Recorded Date -?-?-?-?-?-?-?-?-?-?-?-?- EGA Weight BP Alb Glu CTX Pres Fundal ht FHR Mov Dilation Station Effacement Hx Notes Visit Note 10/25/24 -?-?-?-?-?-?-?-?-?-?-?-?- 7w 6d 95.028 kg 148/93 at ~5?6w by LMP 08/31/24, presents for initial intake. History of vaginal delivery at 34w in 2023. No chronic medical or surgical history. No tobacco, alcohol, or drug use. Uterus visualized on US with intrauterine gestational sac; no pole or cardiac activity seen, consistent with early IUP. Plan: Repeat TVUS in 10 days for viability/lilliam ing hCG drawn today Start vitamins Rx for nausea sent Routine labs pending Declined genetic screening for now Routine follow-up 11/04/24 -?-?-?--?-?-?-?-?-?-?-?-?- 9w 2d 94.574 kg 126/94 at 7 weeks and 3 days gestation presents for routine care. Patient reports nausea. Denies headache, vision changes, right upper quadrant or epigastric pain. Transvaginal ultrasound on 11/04/2024 confirmed intrauterine with heartbeat of 158 bpm, consistent with gestational age. hCG level on 10/25/2024 was 16,327. No additional concerns reported. Plan: Problem list: at 7w3d, nausea. Discussed ultrasound findings confirming intrauterine with appropriate dating and normal FHR. Routine labs ordered today. Counseled on genetic carrier screening options and reviewed timing for NIPT and NT scan. Advised continuation of vitamins, lifestyle modifications for early , and avoidance of teratogens. Educated on normal first-trimester symptoms and provided guidance on warning signs. Scheduled follow-up visit in 4 weeks. 12/01/24 -?-?-?-?-?-?-?-?-?-?-?-?- 13w 1d 91.852 kg 132/81 at 13w1d, LONNIE 06/02/25. Initial intake. Hyperemesis gravidarum on Diclegis/Zofran/Reglan. FHR 157 Routine care, vitamins, genetic screening complete, US for dating, continue hyperemesis management, FU routine schedule.RetryClaude can make mistakes. Please double-check responses. at 13w1d, LONNIE 06/02/25. Initial intake. Hyperemesis gravidarum on Diclegis/Zofran/Reglan. FHR 157 12/21/24 -?-?-?-?-?-?-?-?-?-?-?-?- 16w 0d 91.852 kg 125/83 absent unknown 14 145 absent c/o vag itch and burning, hyperemesis improving, spotted light x1. field work, vagina red, + greyish discharge IUP 14w by sono 11/04/24. fetus measured 7-3. AFP nv. nuswab plus. gynelotrimin x7, flagyl 500 bid x7. comfort measure for vaginitis. referal for [facility] marilyn. rtc 3 week 01/12/25 -?-?-?-?-?-?-?-?--?-?-?-?- 19w 1d 93.213 kg 113/73 absent unknown 20 155 active - Chief complaint: Back pain - Location: Lower back - Timing: All day - Severity: Described as really bad - Last appointment: Treated for grace vaginitis - Denies any other concerns or symptoms - Apply hot pads for back pain - Prescribed muscle relaxants for severe back pain days (not for daily use) - Can take Tylenol, use hot packs, and h ot showers for pain relief - Avoid using ice for back pain - Complete glucose test (1-hour test) on an empty stomach within the next couple of weeks - Follow up appointment in 4 weeks - Muscle relaxant prescription to be sen t to [facility] pharmacy 02/18/25 -?-?-?-?-?-?-?-?-?-?-?-?- 24w 3d 97.296 kg 119/76 absent unknown 25 140 active - Patient reports urinary symptoms: - Frequency - Urgency - Burning sensation - Foul smell when wiping - History of back pain: - Previously treated with Tylenol and muscle relaxants - Patient experienced significant pelvic pressure 2 weeks ago: - Described as feeling like the baby w as going to come out - Pain was severe but has since resolv ed - Reports increased movement - Denies: - Cramping - Contractions - Leaking fluid - Complains of significant itchiness - Prescribe 14-day course of antibiotics for UTI - Provide prescription for yeast infecti on treatment (to be used if needed) - Send prescriptions to local pharmacy - Follow up in 4 weeks - Repeat urine culture at next visit 03/23/25 -?-?-?-?-?-?-?-?-?-?-?-?- 29w 1d 98.089 kg 132/78 absent cephalic 30 155 active - She has a history of recurrent urinary tract infections and was treated at her last appointment. - Today's urine dipstick is positive for blood and leukocytes. - She is currently being given Augmentin for acute UTI treatment. - Baby was breech earlier in the second trimester. - Start Augmentin for UTI treatment - Obtain urine culture at this appointme nt - Order CBC, urine culture, and RPR - MFM ultrasound scheduled for April 13 for interval growth evaluation, cervix monitoring, and presentation assessment - Return visit in 2 weeks - Call patient with urine culture result s 04/08/25 -?-?-?-?-?-?-?-?-?-?-?-?- 31w 3d 100.244 kg 117/77 absent cephalic 32 14 5 active - Rain Chu is a 4 para 1 patient at 31 weeks and 3 days gestation presenting for a pre ernesto visit with a history of recurrent UTIs. - She reports leg stretch pain occurring every 10 to 20 minutes. - Patient reports the baby is active. - She has a maternal ultrasound scheduled for April 13. - labor workup to be performed today including vaginal swab and ultrasound at labor and delivery (4th floor) - Maternal ultrasound scheduled fo r April 13 (Friday) - Follow-up appointment in 2 weeks 04/20/25 -?-?-?-?-?-?-?-?-?-?-?-?- 33w 1d 100.244 kg 126/84 absent cephalic 34 14 5 active - She was hos pitalized over the weekend for spotting and suspected yeast infection. - A culture swab was performed during the hospital visit. - She was advised to use pyrj-eqz-loxl ter yeast medication, which she has used. - She reports feeling better now. - She reports the baby is active. - She denies any current concerns or symptoms. - Return in 2 weeks for next visit - Group B strep culture to be performed at next visit - Continue current management for pregna ncy at 33 weeks 1 day 05/10/25 -?-?-?-?-?-?-?-?-?-?-?-?- 36w 0d 102.228 kg 124/84 absent cephalic 36 16 5 active - Rain Chu is a 4, para 101 patient at 36 weeks and 0 days gestation with a history of labor presenting for routine care. - This she has had cervical le ngth monitoring with no evidence of labor. - She is due for group B strep testing. - Group B strep testing due - Order ultrasound referral - Order EKG - Refer for eye examination with timbo mology - Patient to schedule [facility] for E[facility] and eye exam coordination LONNIE Calculator Estimated Delivery Date Method Current WG Current Estimate 06/07/25 LMP (Uncertain) 39w 6d Specific Issue/Plans Laboratory, Imaging, and Diagnostic Test Results - Hepatitis B: Negative - Hepatitis C: Negative - RPR: Non-reactive - Rubella: Immune - Blood group: A positive - Antibody screen: Negative - HIV: Negative - Gonorrhea: Negative - Chlamydia: Negative - CBC: - Hemoglobin: 14.0 g/dL - Hematocrit: 44.7% - Platelet count: 349 x10^3/?L - Urinalysis: - Appearance: Cloudy - Protein: 1+ - Ketones: 1+ - Epithelial cells: Present - Maternity 21: Negative for all trisomies and common genetic abnormalities - SMA testing: Negative - Cystic fibrosis testing: Negative - gender: Female Notes Visit Date: 04/20/25 Last Updated by: Osman Garcia MD - [facility] ultrasound at 33 weeks 1 day gestation: KINA 17.74 (66th percentile), estimated weight 1743 grams (82nd percentile), abdominal circumference at 90th percentile, posterior placenta with no previa - heart rate: 146-150 bpm (normal) - Culture swab performed during recent hospital visit for spotting Visit Date: 04/08/25 Last Updated by: Osman Garcia MD - Recent laboratory results: - Hemoglobin: 12.8 g/dL - Syphilis test: Negative - Urine culture: Negative Visit Date: 02/18/25 Last Updated by: Osman Garcia MD - Date: 02/04/2025 - One-hour glucose tolerance test: 109 mg/dL - Hemoglobin A1c: 5.3% - [facility] Ultrasound (02/09/2025): - Anatomy survey: Within normal limits - Amniotic fluid: Within normal limits - No structural abnormalities noted (suboptimal views) - Transvaginal cervical length: 4.05 cm - Placenta: Posterior, no previa - presentation: Breech - Uterus and adnexa: Normal Visit Date: 12/21/24 Last Updated by: Gloria Guo CNM OB panel: A+,abs-,rpr;;nr, rub imm, HBSAG-,HIV-, HC-, gc/ct-, NIPT-, SMA/CF- Office Procedures OBC Clinic LOC & Office Proc's Nursing/Assessment Patient Status: Established Patient OB Clinic Nursing Assessment: Medication Reconciliation, Update PMH in EMR and Vital Signs OB Clinic Coordination of Care: Complex Care and Chronic Disease 1-5, Consent,records obtained, informed consent, Education Simp Pt/Fam, 1 Ins Authorization, Lab and Imaging orders, Results/Orders obtained and Staff clarify orders Special Needs: Heart tones Miscellaneous Interventions: Culture Specimen Collection Established Patient Charge Established Patient Point Assignment: 165 Established Patient Point Charge: EP Level 5 (160-above) Injection/Vaccine Admin SQ Im Injection: Yes Immunizations flu vac ts (6mos up)-PF 45 mcg(15mcg x3)/0.5 mL IM syringe Performing Provider: Osman Garcia MD Performing Location: [facility] Administered by: Selma Zarate MA on 05/10/25 15:07 Dose Route Admin Location Dispensed Lot Number Expiration Date Pack age NDC NDC Hip Hop Dance Instructor 0.5 mL IM Right Deltoid 0.5 mL [id number] 12/06/25 52204-141-00 [id number] [employer] VIS Given Date VIS Provided VIS Publication Date 05/10/25 Single Vaccine 24 Eligibility Eligibility Date Funding Source [facility] Assessment & Plan Diagnosis / Problem List (1) labor without delivery, unspecified trimester: Status: Acute (2) Maternal care for breech presentation, not applicable or unspecified: Status: Acute Plan Problem List - at 36 weeks gestation - History of labor Assessment 36-week patient, 4, para 101, with history of labor. Current has been monitored with cervical length assessments showing no evidence of labor. Patient is due for group B streptococcus screening. Plan - Group B strep testing due - Order ultrasound referral - Order EKG - Refer for eye examination with ophthalmology - Patient to schedule appointment with primary care provider for EKG and eye exam coordination 1. Progress Reviewed gestational age, growth, and heart rate. Planned frequent visits (every 2 weeks until 36 weeks, then weekly). 2. Instructed patient to monitor movements and report decreases immediately. 3. Testing Counseled on routine third-trimester labs per guidelines. Discussed potential need for ultrasound or monitoring based on risk factors. 4. Preeclampsia Precaution Educated on preeclampsia signs: severe headache, vision changes, right upper quadrant pain, sudden swelling. Advised urgent reporting of symptoms and discussed blood pressure monitoring if high risk. 5. Labor Precautions Reviewed labor signs: regular contractions, pelvic pressure, back pain, bleeding, or fluid leakage. Instructed to seek immediate care for these symptoms. 6. Lifestyle and Delivery Preparation Reinforced vitamins, nutrition, and safe activity. Discussed plan, pain management, and . Advised on labor preparation (e.g., hospital bag) and expectations. 7. Psychosocial Support Assessed emotional well-being and offered resources for mental health or parenting support.
== END 2025-05-10 15:28 | disposition home or self-care (01) ==
LOC: HODSOBC 14:31
PROVIDERS: Supervising Provider Obstetrics & Gynecology; Visit Provider Obstetrics & Gynecology
DX: O09.213 Supervision of pregnancy with history of pre-term labor, third trimester (principal); O09.893 Supervision of other high risk pregnancies, third trimester; O32.1XX0 Maternal care for breech presentation, not applicable or unspecified; Z3A.36 36 weeks gestation of pregnancy; Z36.85 Encounter for antenatal screening for Streptococcus B; Z23 Encounter for immunization
CPT/HCPCS: 90471; 90715; 96372; 99215; G0463

== ENCOUNTER 2025-05-11 05:59 | Inpatient (IN) | payer MEDICAID, SELFPAY ==
[2025-05-11] VITALS (20 sets, daily range): BP systolic 110–150; BP diastolic 68–80; PULSE 83–105; RESP 16–20; TEMP 36.7–36.8; O2SAT 97–100; BMI 38.4
[2025-05-11] MEDS: RINGERS LACTATED 1000 ML 1,000 ML 100 ML IV (07:30)
[2025-05-11] MEDS: Ampicillin Inj 2,000 MG in SODIUM CHLORIDE 0.9% (POP) 100 ML 200 MG IV (07:35)
[2025-05-11] MEDS: OXYTOCIN in NS 20 units 20 UNIT/1,000 ML BAG 125 UNIT IV (07:40)
[2025-05-11] MEDS: LIDOCAINE HCL 1% 20 ML VIAL INFL (07:45)
--- NOTE | 2025-05-11 08:15 | PD.LDHP ---
Documentation for date of: 05/11/25 OB Labor/Induct. HPI History of Present Illness Chief complaint: regular painful ctx : 4 Para: 2 Term pregnancies: 0 pregnancies: 1 Living children: 1 History of Abortions: Spontaneous and Elective: 2 History of Vaginal deliveries: 1 History of sections: No History of : No LONNIE: 06/07/25 Gestational Age (weeks): 36 Gestational Age (days): 1 History of present illness: Patient presents for regular, painful ctx that started at 0430. No LOF. No vaginal bleeding. Normal movement. No fevers/chills. History of Present Dating criteria: LMP confirmed by 1st trimester US Adequate Care: Yes Ultrasounds: normal mid trimester US and other ( - MFM ultrasound at 33 weeks 1 day gestation: KINA 17.74 (66th percentile), estimated weight 1743 grams (82nd percentile), abdominal circumference at 90th percentile, posterior placenta with no previa) Narrative: -Hx of pre-term delivery at 34wk 1 year ago, baby transported to [facility] NICU -Short inter- interval -UTI during -Current BMI 38.4 -PNC with Dr. Garcia Labs Maternal Blood Type: A Pos Labs: Positive: Rubella Titre, Negative: RPR, Hepatitis B, HIV, Chlamydia and Gonorrhea and Unknown: Herpes Type 1, Herpes Type 2, Group Beta Strep and Covid-19 Narrative: - Hepatitis B: Negative - Hepatitis C: Negative - RPR: Non-reactive - Rubella: Immune - Blood group: A positive - Antibody screen: Negative - HIV: Negative - Gonorrhea: Negative - Chlamydia: Negative - CBC: - Hemoglobin: 14.0 g/dL - Hematocrit: 44.7% - Platelet count: 349 x10^3/?L - Urinalysis: - Appearance: Cloudy - Protein: 1+ - Ketones: 1+ - Epithelial cells: Present - Maternity 21: Negative for all trisomies and common genetic abnormalities - SMA testing: Negative - Cystic fibrosis testing: Negative - gender: Female - Date: 02/04/2025 - One-hour glucose tolerance test: 109 mg/dL - Hemoglobin A1c: 5.3% Review of Systems Review of Systems Narrative Review of Systems: Review of Systems Systems Reviewed: All systems reviewed, normal except as documented Constitutional Constitutional: Denies body ache(s), Denies chills, Denies fever(s) and Denies headache(s) ENT Ears, Nose, Mouth, and Throat: Denies headache(s) and Denies vertigo Cardiovascular Cardiovascular: Denies chest pain, Denies palpitations, Denies dyspnea and Denies syncope Respiratory Respiratory: Denies cough, Denies dyspnea Gastrointestinal Gastrointestinal: Denies nausea and Denies vomiting Neurologic Neurologic: Denies convulsions, Denies headache(s), Denies other visual disturbances, Denies syncope and Denies vertigo Past Medical History Family History OTHER FAMILY HX: non-contributory Surgical History SURGICAL: Negative Section Social History SOCIAL: , no tobacco/ETOH/illicit drug use Past Medical History Comments PMH COMMENT: Current BMI 38.4 Meds Home Medications and Allergies Allergies Allergy/AdvReac Type Severity Reaction Status Date / Time No Known Allergies Allergy Verified 05/11/25 07:06 OB Exam Physical Exam Vital signs: Pulse BP Pulse Ox 100 143/70 H 98 05/11/25 08:03 05/11/25 08:03 05/11/25 06:58 Narrative: General: well developed, well nourished, in pain with contractions Cardiac: normal heart rate Lungs: breathing without distress Abdomen: soft, gravid, non-tender, no rebound or guarding Extremities: no edema BLE Detailed Labor and Delivery Exam Dilation (cm): 5 Effacement (%): 80 station: -2 Presentation: Vertex Membranes: intact monitor accelerations: 15x15 monitor decelerations: None manager long term care variability: Moderate (11-25) OB Assessment & Plan Assessment and Plan (1) Active labor: Status: Acute Assessment and plan: Rain is a 24yo with SIUP at 36&1wk presenting in active pre-term labor. Regular/painful contractions, SCE changed from 3cm to 5cm in less than 1 hour in triage. Vitals wnl, benign exam. Reassuring assessment. PMhx/ significant for: -Hx of pre-term delivery at 34wk 1 year ago, baby transported to [facility] NICU -Short inter- interval -UTI during -Current BMI 38.4 -PNC with Dr. Garcia Plan: -Admit to L&D -Establish IV, routine labs -CEFM -Clear liquid diet -Diesel Engine Pipe Fitter/consent re: -GBS status: unknown (GBS test done yesterday), abx ppx ordered -Notify enterprise project manager -Anticipate -Safe to proceed (2) Personal history of pre-term labor: Status: Acute (3) Obesity affecting in third trimester: Status: Acute (4) Supervision of high risk , unspecified, third trimester: Status: Acute (5) Short interval between pregnancies affecting in third trimester, antepartum: Status: Acute (3) Obesity affecting in third trimester Qualifiers: Obesity type affecting : other obesity Qualified Code(s): O99.213 - Obesity complicating , third trimester; E66.89 - Other obesity not elsewhere classified
[2025-05-11] MEDS: IBUPROFEN TAB 400 MG TABLET 800 MG PO ×2 (08:19→20:44)
--- NOTE | 2025-05-11 08:29 | PD.LDDELS ---
Data (Rolle) Data Hx Section: No : 4 Term: 0 : 1 Livin Abortions: Spontaneous & Theraputic: 2 Delivery Data (Rolle) Labor Data Initiation of labor: Spontaneous Induction/Augmentation Agent: None ROM date: 05/11/25 ROM time: 07:35 Amniotic membrane rupture type: Spontaneous Amniotic fluid description: Clear Delivery Data Onset of labor date: 05/11/25 Onset of labor time: 04:30 Complete dilation date: 05/11/25 Complete dilation time: 07:36 delivery date: 05/11/25 delivery time: 07:39 Placenta delivery date: 05/11/25 Placenta delivery time: 07:45 Stage 1 total time: Labor - Stage 1 Duration 3 hours and 6 minutes Delivered by: Roro Chin Delivery nurse: landry Guzmán nurse: tawnya Horologist Apprentice at delivery: No Support person(s) at delivery: FOB Other staff at delivery: TONNY Murphy compressor operator adjuster Method Delivery method: Normal Vaginal Delivery Presentation: Vertex Anesthesia Type Anesthesia Type: None Placenta Placenta delivery description: Spontaneous Cord blood sent to lab: Yes cord blood collection: Cord Blood Type Episiotomy Episiotomy description: None EBL Estimated blood loss (ml): 200 Umbilical Cord cord description: 3 Vessels Additional Procedures Rain is a 24yo [id number] s/p uncomplicated at 36&1wk after presenting in active pre-term labor, delivering at 0739 on 05/11/2025. On presentation, SCE changed from 3 to 5cm in less than 1 hour. She progressed very quickly to C/C/0 at which point she began pushing. She declined epidural. With good maternal pushing efforts, infant's head delivered OA and restituted IGNACIO. Left anterior shoulder delivered easily followed by posterior shoulder and corpus. had spontaneous cry and was vigorous. Apgars 8/6/8- required CPAP on the warmer. placed on maternal abdomen where nose/mouth were suctioned and dried/stimulated. After approximately 1 minute, cord was clamped x2 and cut by FOB. Cord blood collected for typing. With fundal massage and cord traction, placenta delivered spontaneously and intact with 3 vessel centrally inserted cord. Bimanual massage performed and IV pitocin given per protocol with fundus then firm at u-2cm and hemostasis noted. Inspection of perineum and vagina revealed a 2nd degree midline perineal laceration which was repaired in routine fashion with 3-0 vicryl after anesthetizing with 1% lidocaine- total reapproximation and hemostasis achieved. All counts correct x2. Mom and infant were doing well when I left the room. Roro Chin MD Complications Complications: none Data (Rolle) Clinton Data order: 1 Clinton's gender: Female Identification band number: [id number] weight (gms): 2410 g Weight (pounds): 5 lbs and 5.0 ozs length: 49 cm
[2025-05-11 09:28] LABS: Basophils # (Auto) 0.0 Thou/mm3 (0.0-0.2); Basophils % (Auto) 0 % (0-2.5); Eosinophils # (Auto) 0.0 Thou/mm3 (0.0-0.5); Eosinophils % (Auto) 0 % (0-10); Hematocrit 39.6 % (36.0-46.0); Hemoglobin 13.5 g/dL (12.0-16.0); Immature Granulocytes Auto 0.04 Thou/mm3 (0.00-0.00); Lymphocytes # (Auto) 2.3 Thou/mm3 (1.0-4.8); Lymphocytes % (Auto) 25 % (10-50); Mean Corpuscular HGB Conc 34.1 g/dl (31.0-37.0); Mean Corpuscular Hemoglobin 29.8 pg (25.0-35.0); Mean Corpuscular Volume 87 fL (80-100); Monocytes # (Auto) 0.8 Thou/mm3 (0.0-0.8); Monocytes % (Auto) 9 % (0-12); Neutrophils # (Auto) 6.1 Thou/mm3 (1.8-7.7); Neutrophils % (Auto) 66 % (37-80); Nucleated Red Blood Cell # 0.00 Thou/mm3 (0.00-0.00); Nucleated Red Blood Cell % 0 /100 WBC (0); Platelet Count 263 Thou/mm3 (140-440); RDW Standard Deviation 43.2 fL (36.4-46.3); Red Blood Count 4.53 Miln/mm3 (4.00-5.20); White Blood Count 9.3 Thou/mm3 (3.6-11.0)
[2025-05-11 09:50] LABS: Syphilis Nonreactive (Nonreactive)
[2025-05-11] MEDS: DOCUSATE SOD 100 MG CAPSULE PO ×2 (10:27→20:44)
[2025-05-11] MEDS: RINGERS LACTATED 1000 ML 1,000 ML 999 ML IV (12:37)
[2025-05-11 14:30] LABS: Basophils # (Auto) 0.0 Thou/mm3 (0.0-0.2); Basophils % (Auto) 0 % (0-2.5); Eosinophils # (Auto) 0.0 Thou/mm3 (0.0-0.5); Eosinophils % (Auto) 0 % (0-10); Hematocrit 32.7 % (36.0-46.0); Hemoglobin 11.2 g/dL (12.0-16.0); Immature Granulocytes Auto 0.06 Thou/mm3 (0.00-0.00); Lymphocytes # (Auto) 1.4 Thou/mm3 (1.0-4.8); Lymphocytes % (Auto) 12 % (10-50); Mean Corpuscular HGB Conc 34.3 g/dl (31.0-37.0); Mean Corpuscular Hemoglobin 30.2 pg (25.0-35.0); Mean Corpuscular Volume 88 fL (80-100); Monocytes # (Auto) 0.8 Thou/mm3 (0.0-0.8); Monocytes % (Auto) 7 % (0-12); Neutrophils # (Auto) 9.4 Thou/mm3 (1.8-7.7); Neutrophils % (Auto) 81 % (37-80); Nucleated Red Blood Cell # 0.00 Thou/mm3 (0.00-0.00); Nucleated Red Blood Cell % 0 /100 WBC (0); Platelet Count 250 Thou/mm3 (140-440); RDW Standard Deviation 43.2 fL (36.4-46.3); Red Blood Count 3.71 Miln/mm3 (4.00-5.20); White Blood Count 11.6 Thou/mm3 (3.6-11.0)
[2025-05-11] MEDS: ACETAMINOPHEN 325 MG TABLET 650 MG PO (16:03)
[2025-05-12 03:48] VITALS: BP 119/75; PULSE 88; RESP 14; TEMP 36.7; O2SAT 99
[2025-05-12 07:55] VITALS: BP 128/79; PULSE 89; RESP 14; TEMP 36.8; O2SAT 98
[2025-05-12] MEDS: IBUPROFEN TAB 400 MG TABLET 800 MG PO (07:59)
[2025-05-12] MEDS: PRENATAL VITAMIN/FE FUM/FA TABLET 1 TAB PO (08:00)
[2025-05-12] MEDS: DOCUSATE SOD 100 MG CAPSULE PO (08:00)
--- NOTE | 2025-05-12 08:20 | ESDS_ITS ---
DS: Providers Provider Date of admission: 05/11/25 07:04 Primary care physician: Physician No Primary/Family Admitting Provider: Roro Chin MD Attending Provider on Admission: Roro Chin MD Consults: 05/11/25 08:13 Referral Routine Comment: Attending Provider on DC: Roro Chin MD Discharging Provider: Roro Chin MD DS: Diagnosis Discharge Diagnosis (1) Vaginal delivery: Status: Acute (2) Active labor: Status: Acute (3) Obesity affecting in third trimester: Status: Acute (4) Short interval between pregnancies affecting in third trimester, antepartum: Status: Acute (5) Personal history of pre-term labor: Status: Acute Problem List Completed Was Problem List Reviewed/Reconciled?: Yes Summary/Hosp Course Brief History: Rain is a 24yo [id number] s/p uncomplicated at 36&1wk after presenting in active pre-term labor, delivering at 0739 on 05/11/2025. Doing well on PPD1. She has had an uncomplicated course, meeting all milestones and feels ready for discharge home. She is ambulating without lightheadedness, tolerating regular diet no n/v, spontaneously voiding without issue. She has no chest pain or shortness of breath. No fevers or chills. Minimal, appropriate discomfort. Vitals normal, benign exam. Hemodynamically stable with no evidence of infection. PP Hgb 11.2. Peripartum Data Delivery Method: Normal Vaginal Delivery Episiotomy Description: None Status at Discharge Functional status at discharge: independent ambulation Overall status at discharge: patient is back to baseline Time Spent with Patient Time attestation: Total time spent providing and/or coordinating discharge services: Exam Vital Signs Temp Pulse Resp BP Pulse Ox O2 Del Method 98.0 F 88 14 119/75 99 Room Air 05/12/25 03:48 05/12/25 03:48 05/12/25 03:48 05/12/25 03:48 05/12/25 03:48 05/12/25 03:48 Narrative Exam General: well developed, well nourished, no acute distress, conversant Cardiac: normal heart rate Lungs: breathing without distress Abdomen: soft, post-gravid, non-tender, no rebound or guarding, Fundus firm at u-3cm. Extremities: no pain with palpation of calves, trace edema of BLE Discharge Plan Plan Patient Disposition: HOME (Self Care) Patient condition on transfer: Stable Prescriptions/Referrals Prescriptions/Med Rec: New docusate sodium 100 mg Capsule 100 mg PO BID 10 Days Qty: 20 0RF ibuprofen 800 mg tablet 800 mg PO Q8H PRN (Reason: See Comments) 10 Days Qty: 20 0RF Continued Vitamin Plus Low Iron 27 mg iron- 1 mg tablet 1 tab PO QDAY 90 Days Qty: 90 6RF Referrals: Osman Garcia MD [Physician, HEATING OPERATORS ENGINEER] No Primary/Family,Physician [Primary Care Provider] Patient/Caregiver Discharge Instructions Discharge Activity: activity as tolerated and other Other Discharge Activity Instructions:: vaginal rest and no heavy lifting more than 10 pounds for 6 weeks Other Discharge Diet Instructions: regular diet Education Materials: After a Vaginal Print Language: Ghanaian Activity Restrictions/Additional Instructions: follow up with Dr. Garcia in 4 weeks for visit, call office to schedule appointment Stand Alone Forms: Bridgett Award Info., Patient Portal Info Letter, Work/Release Restrictions Discharge Order Discharge Orders: Discharge (Routine); Ordered 05/12/25 Ordered By: Roro Chin Planned Discharge Date 05/12/25 (3) Obesity affecting in third trimester Qualifiers: Obesity type affecting : other obesity Qualified Code(s): O99.213 - Obesity complicating , third trimester; E66.89 - Other obesity not elsewhere classified
--- NOTE | 2025-05-12 12:52 | PC.NURSE ---
social service referral for , SW visited baby in NICU
== END 2025-05-12 14:15 | disposition home or self-care (01) | DRG 560 ==
LOC: S4NX 13:56 → S4SX 13:56
PROVIDERS: Admitting Provider Obstetrics & Gynecology; Visit Provider Obstetrics & Gynecology
DX: O60.14X0 Preterm labor third trimester with preterm delivery third trimester, not applicable or unspecified (principal); O99.214 Obesity complicating childbirth; Z3A.36 36 weeks gestation of pregnancy; O70.1 Second degree perineal laceration during delivery; Z37.0 Single live birth; E66.89 Other obesity not elsewhere classified
CPT/HCPCS: 36415; 59025; 80307; 85025; 86780; 86850; 86900; 86901; J0290; J2590; J3490; J7120; A9270